=== PATIENT | female | born 1970 | race American Indian/Alaskan Native ===

== ENCOUNTER 2017-07-25 00:23 | Inpatient (IN) | payer MEDICAID ==
[2017-07-25 00:24] VITALS: BMI 23.5
[2017-07-25 00:44] VITALS: O2SAT 98
--- NOTE | 2017-07-25 01:15 | ED PDOC ---
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 Patient reports that her mother 07/08 and she has had increased melancholia since. She also reports she was 3 years clean of heroin, but snorted heroin 3 days ago. Patient is reporting suicidal thoughts including possibly overdosing on pills. PMD: Dr. Thornton Past Medical History Reviewed: Historical Data, Nursing Documentation, Vital Signs Vital Signs: Last Vital Signs Temp 98.8 F 07/25/17 00:39 Pulse 82 07/25/17 00:39 Resp 16 07/25/17 00:39 BP 114/78 07/25/17 00:39 Pulse Ox 98 07/25/17 00:39 - Medical History PMH: Anemia, Anxiety, Asthma, Bipolar Disorder, Depression Denies: Alzheimer's Disease, Arthritis, Atrial Fibrillation, Bronchitis, Cardia Arrhythmia, CHF, COPD, Crohn's Disease, Diabetes, Diverticulitis, Emphysema, Fractures, Gastritis, Gall Bladder Disease, Hepatitis, HIV, HTN, Hypercholesterolemia, Hyperthyroidism, Hypothyroidism, Kidney Stones, Migraine, Mitral Valve Prolapse, Multiple Sclerosis, Osteoporosis, Pancreatitis, Parkinson 's Disease, Personality Disorder, Pneumonia, Pulmonary Embolism, Chronic Kidney Disease, Rheumatoid Arthritis, Schizophrenia, Seizures, Sickle Cell Disease, Sexually Transmitted Disease, Sleep Apnea, TIA - Surgical History Surgical History: Cholecystectomy Denies: Appendectomy, CABG, Carotid Endarterectomy, Coronary Stent, Pacemaker , Tonsillectomy - Family History Family History: States: Unknown Family Hx - Social History Current smoker - smoking cessation education provided: Yes (5 cigarettes per day ) Alcohol: < 2 Drinks/Day Drugs: Opiates (heroin) - Immunization History Hx Tetanus Toxoid Vaccination: No Hx Influenza Vaccination: Yes Hx Pneumococcal Vaccination: No - Home Medications Home Medications: Ambulatory Orders Medication Instructions Recorded Docusate [Colace] 100 mg PO BID #14 cap 04/20/17 Gabapentin [Neurontin] 600 mg PO TID #45 tab 04/20/17 QUEtiapine [Seroquel] 300 mg PO AMHS #30 tab 04/20/17 traZODone [Desyrel] 200 mg PO HS #30 tab 04/20/17 ARIPiprazole [Abilify] 10 mg PO QPM #30 tab 06/01/17 FLUoxetine [Prozac] 20 mg PO DAILY #30 cap 06/01/17 Gabapentin [Neurontin] 300 mg PO TID #90 cap 06/01/17 QUEtiapine [Seroquel] 100 mg PO HS #30 tab 06/01/17 traZODone [Desyrel] 100 mg PO HS PRN #30 tab 06/01/17 - Allergies Allergies/Adverse Reactions: Allergies Allergy/AdvReac Type Severity Reaction Status Date / Time Penicillins AdvReac RASH Verified 07/25/17 00:39 Review of Systems ROS Statement: Except As Marked, All Systems Reviewed And Found Negative Psych: Positive for: Depression, Suicidal ideation Physical Exam - Reviewed Nursing Documentation Reviewed: Yes Vital Signs Reviewed: Yes - Physical Exam Appears: Positive for: Non-toxic, No Acute Distress (poor state of hygiene) Head Exam: Positive for: ATRAUMATIC, NORMAL INSPECTION, NORMOCEPHALIC Skin: Positive for: Normal Color, Warm, Dry. Negative for: Rash Eye Exam: Positive for: EOMI, Normal appearance, PERRL Neck: Positive for: Normal, Painless ROM, Supple Cardiovascular/Chest: Positive for: Regular Rate, Rhythm. Negative for: Murmur Respiratory: Positive for: Normal Breath Sounds. Negative for: Respiratory Distress Gastrointestinal/Abdominal: Positive for: Normal Exam, Soft. Negative for: Tenderness Back: Positive for: Normal Inspection. Negative for: L CVA Tenderness, R CVA Tenderness, Vertebral Tenderness Extremity: Positive for: Normal ROM. Negative for: Pedal Edema, Deformity Neurologic/Psych: Positive for: Alert, Oriented, Mood/Affect (depressed). Negative for: Motor/Sensory Deficits - Laboratory Results Result Diagrams: 07/25/17 01:50 - ECG O2 Sat by Pulse Oximetry: 98 (RA) Pulse Ox Interpretation: Normal Medical Decision Making Medical Decision Makin:50 Initial Impression: 47 y/o female with melancholia and suicidal ideations in setting of known depression Plan: --EKG --CMP --Alcohol serum --Drug screen --Crisis evaluation --Urine --CBC --Accucheck --Urinalysis --Reevaluation 02:33 Patient evaluated by crisis and will be admitted for further psychiatric stabilization and treatment. Patient is medically stable for psychiatric admission. Scribe Attestation: Documented by Eladio Pineda, acting as a scribe for Sorin Suh MD. Provider Scribe Attestation: All medical record entries made by the Scribe were at my direction and personally dictated by me. I have reviewed the chart and agree that the record accurately reflects my personal performance of the history, physical exam, medical decision making, and the department course for this patient. I have also personally directed, reviewed, and agree with the discharge instructions and disposition. Disposition - Clinical Impression Clinical Impression: Schizoaffective disorder - Patient ED Disposition Is Patient to be Admitted: Yes - Disposition Referrals: Abigail Thornton MD [Primary Care Provider] - Disposition Time: 02:33 Condition: FAIR Forms: [employer] (Bengali) - Pt Status Changed To: Hospital Disposition Of: Inpatient - Admit Certification Admit to Inpatient:: After my assessment, the patient will require hospitalization for at least two midnights. This is because of the severity of symptoms shown, intensity of services needed, and/or the medical risk in this patient being treated as an outpatient.
[2017-07-25 01:31] LABS: SQUAMOUS EPITHIAL 2 /hpf (0-5); URINE BACTERIA OCC (<OCC); URINE BILIRUBIN SMALL (NEGATIVE); URINE BLOOD NEGATIVE (NEGATIVE); URINE CLARITY SLIGHTY-CLOUDY (Clear); URINE COLOR AMBER (YELLOW); URINE GLUCOSE (UA) NEG (Normal); URINE LEUKOCYTE ESTERASE NEG Leu/uL (Negative); URINE PROTEIN 30 mg/dL (NEGATIVE)
[2017-07-25 01:46] LABS: BARBITURATES, UR NEGATIVE (NEGATIVE); BENZODIAZEPINES, UR POSITIVE (NEGATIVE); OPIATES, UR POSITIVE (NEGATIVE); PHENCYCLIDINE, UR NEGATIVE (NEGATIVE)
[2017-07-25 02:16] LABS: BASO % 0.3 % (0.0-2.0); EOS # 0.3 K/uL (0.0-0.7); EOS % 4.3 % (0.0-4.0); HEMOGLOBIN 12.8 g/dL (12.0-16.0); LYMPH # 2.5 K/uL (1.0-4.3); LYMPH % 33.7 % (20.0-40.0); MEAN CORPUSCULAR HEMOGLOBIN 30.8 pg (27.0-31.0); MEAN CORPUSCULAR HGB CONC 33.8 g/dL (33.0-37.0); MEAN PLATELET VOLUME 9.7 fl (7.2-11.7); MONO # 0.8 K/uL (0.0-0.8); NEUT # 3.8 K/uL (1.8-7.0); NEUT % 50.7 % (50.0-75.0); NRBC % 0.2 % (0.0-0.0); RBC 4.16 Mil/uL (3.80-5.20); RED CELL DISTRIBUTION WIDTH 15.7 % (11.5-14.5); WHITE BLOOD COUNT 7.6 K/uL (4.8-10.8)
[2017-07-25 03:52] LABS: ALBUMIN 3.6 g/dL (3.5-5.0); ALT/SGPT 77 U/L (9-52); AST/SGOT 122 U/L (14-36); BLOOD UREA NITROGEN 11 mg/dl (7-17); GFR AFRICAN-AMERICAN > 60; GFR NON-AFRICAN AMERICAN > 60
[2017-07-25] MEDS ORDERED: Magnesium Hydroxide Susp 30 ml UD PO PRN (04:10)
[2017-07-25] MEDS ORDERED: Alum-Mag Hydrox-Simethicone Susp (30 mL) PO PRN (04:10)
[2017-07-25] MEDS ORDERED: DiphenhydrAMINE 50 mg/ml Inj IM PRN (04:10)
--- NOTE | 2017-07-25 04:27 | PCM.BM ---
<Ashu Olivia - Last Filed: 07/25/17 04:26> Treatment Plan Problems - Problems identified on initial assessmt Hopelessness/Helplessness Date Initiated: 07/25/17 Time Initiated: 04:26 Assessment reference: NA Status: Active Priority: 1 Feelings of Worthlessness Date Initiated: 07/25/17 Time Initiated: 04:26 Assessment reference: NA Status: Active Priority: 2 Treatment assets and liabiliti Patient Assests: adapts well (Chronic, Anemia), cooperative, self-reliant, ADL independent, negotiates basic needs, cognitively intact, good interpersonal skills Patient Liabilities: relationship conflicts, substance abuse, medical problems - Milieu Protocol Maintain good personal hygiene: every shift Encourage regular showers, every shift Remind patient to perform daily oral care, every shift Assist patient to perform ADL's Maintain personal safety: daily Educate patient to report safety concerns to staff, daily Monitor environment for contraband/sharps Medication safety: Monitor for expected outcome, potential side effects: daily, Assess barriers to learning: daily, Assess readiness for medication education: daily <Jovita Chadwick - Last Filed: 07/25/17 08:47> - Diagnosis (1) Schizoaffective disorder Status: Chronic Interventions: Medication management, Individual and group therapy, Psychoeducation 07/25/17 08:47 (2) Benzodiazepine abuse Status: Acute Interventions: Medication management, Individual and group therapy, Psychoeducation 07/25/17 08:48 (3) Cocaine use disorder, moderate, dependence Status: Acute Interventions: Medication management, Individual and group therapy, Psychoeducation 07/25/17 08:48 (4) Opioid use disorder, severe, dependence Status: Acute Interventions: Medication management, Individual and group therapy, Psychoeducation 07/25/17 08:48 <Yuriy Bazzi - Last Filed: 07/27/17 07:08> Family Contact Family involvement: Famliy/SO not involved Family contact: Patient declines to allow family contact at present Family contact name: Pt denied. - Goals for Treatment Patient goals for treatment: Pt did not offer any concrete goals for treatment at this time. Discharge/Continuing Care - Education Needs Education Needs: Patient Medication, Patient Diagnosis/Disease Process, Patient Coping Skills, Patient Anger Management skills, Patient Community resources, Patient Personal Hygiene/Grooming - Discharge Discharge Criteria: Tolerates medication w/o severe side effects, Free of Suicidal thoughts, Free of agitation, Normal sleep pattern, Ability to care for self, No longer exhibiting s/s of withdrawal, Reduction of target symptoms Discharge to:: [facility] - Treatment Team Participation Patient/Family/SO Statement: 07/27/17 07:06 Pt appeared lethargic and irritable during treatment team. Pt reported that she just woke up and was still tired. When pt was asked how she was today her response was "same old, same old." Medications were reviewed with pt of Seroquel and Trazodone. Pt currently denied side-effects and denied withdrawal symptoms such as tremors, diarrhea, nausea or upset stomach. Pt appeared anxious for team to end so she could return to bed. Discussed with Family/SO: No Was Patient/Family/SO present at Treatment Team Meeting: Yes
--- NOTE | 2017-07-25 08:29 | RAD ---
HISTORY: admit COMPARISON: No prior. FINDINGS: LUNGS: The lungs are well inflated and clear. PLEURA: No significant pleural effusion identified, no pneumothorax apparent. CARDIOVASCULAR: Normal. OSSEOUS STRUCTURES: No significant abnormalities. VISUALIZED UPPER ABDOMEN: Normal. OTHER FINDINGS: None. IMPRESSION: No active pulmonary disease.
--- NOTE | 2017-07-25 08:37 | CARD ---
APPROVED REPORT EKG Measurement Heart [id number] <Conclusion> Normal sinus rhythm Normal ECG
--- NOTE | 2017-07-25 08:55 | PCM.PSYCH ---
Initial Psychiatric Evaluation - Initial Psychiatric Evaluation Type of Admission: Voluntary Legal Status: Capacity Chief Complaint (in patient's own words): "I'm depressed." Patient's Reaction to Hospitalization: 47 yo female w/ h/o schizoaffective disorder vs bipolar disorder, cocaine/opioid /benzodiazepine/cannabis use disorders, presents w/ depression and suicidal ideation w/o specific plan in the context of recent relapse on heroin, methadone , xanax, marijuana and cocaine. She reports she feels depressed due to recent deaths in her life and stress. She also reports intermittent auditory hallucinations of her grandmother screaming, last heard last night. +Sleep/ appetite disturbances. +Feelings of hopelessness. She reports that she is not always compliant with her medications (Seroquel and Trazodone). PPHx: H/o multiple past psychiatric hospitalizations for schizoaffective d/o vs bipolar disorder vs substance induced mood disorder. [place] [facility] but could not recall the doctors name. PMHx: Constipation PSurgHx: Cholecystectomy SHx: +Cocaine/heroin/methadone/xanax/cocaine/marijuana abuse; smokes 5-6 cig / day (declined nicotine replacement); denies ETOH; lives "with a friend"; unemployed ALL: PCN Current Medications: Active Medications Generic Name Dose Route Start Last Admin Trade Name William PRN Reason Stop Dose Admin Acetaminophen 650 mg 07/25/17 04:10 Tylenol 325mg Tab PO Q4 PRN Pain, moderate (4-7) Al Hydrox/Mg Hydrox/Simethicone 30 ml 07/25/17 04:10 Maalox Plus 30 Ml PO Q4 PRN Dyspepsia Diphenhydramine HCl 50 mg 07/25/17 04:10 Benadryl IM Q6 PRN Extrapyramidal S/S Unable PO Diphenhydramine HCl 50 mg 07/25/17 04:10 Benadryl PO Q6 PRN Extrapyramidal Symptoms Diphenhydramine HCl 50 mg 07/25/17 04:19 Benadryl PO HS PRN Sleep Docusate Sodium 100 mg 07/25/17 09:00 Colace PO BID ANISA Haloperidol 5 mg 07/25/17 04:10 Haldol PO Q4 PRN Agitation Haloperidol Lactate 5 mg 07/25/17 04:10 Haldol IM Q4 PRN Agitation, Unable to Take PO Ibuprofen 800 mg 07/25/17 04:17 Motrin Tab PO 07/28/17 04:18 Q6 PRN Pain, severe (8-10) Loperamide HCl 2 mg 07/25/17 04:17 Imodium PO Q4 PRN After Loose Bowel Movement Lorazepam 2 mg 07/25/17 04:10 Ativan IM Q4 PRN Anxiety/Agitation,Unable PO Lorazepam 2 mg 07/25/17 04:10 Ativan PO Q4 PRN Anxiety/Agitation Lorazepam 0.5 mg 07/25/17 09:00 Ativan PO TID ANISA Magnesium Hydroxide 30 ml 07/25/17 04:10 Milk Of Magnesia PO HS PRN Constipation Pneumococcal Polyvalent Vaccine 0.5 ml 07/25/17 10:00 Pneumovax 23 Vaccine IM 07/25/17 10:01 .ONCE ONE Quetiapine Fumarate 300 mg 07/25/17 22:00 Seroquel PO HS ANISA Quetiapine Fumarate 100 mg 07/25/17 09:00 Seroquel PO DAILY ANISA Trazodone HCl 100 mg 07/25/17 22:00 Desyrel PO HS ANISA Past Psychiatric History - Past Psychiatric History Previous Treatment History: Inpatient Pertinent Medical Hx (Current Medical&Sleep Prob, Allergies): Allergies Allergy/AdvReac Type Severity Reaction Status Date / Time Penicillins AdvReac RASH Verified 07/25/17 00:39 Docusate [Colace] 100 mg PO BID #14 cap 04/20/17 Gabapentin [Neurontin] 600 mg PO TID #45 tab 04/20/17 QUEtiapine [Seroquel] 300 mg PO AMHS #30 tab 04/20/17 traZODone [Desyrel] 200 mg PO HS #30 tab 04/20/17 ARIPiprazole [Abilify] 10 mg PO QPM #30 tab 06/01/17 FLUoxetine [Prozac] 20 mg PO DAILY #30 cap 06/01/17 Gabapentin [Neurontin] 300 mg PO TID #90 cap 06/01/17 QUEtiapine [Seroquel] 100 mg PO HS #30 tab 06/01/17 traZODone [Desyrel] 100 mg PO HS PRN #30 tab 06/01/17 Review of Systems - Psychiatric Psychiatric: As Per HPI, Abnormal Sleep Pattern, Anxiety, Auditory Hallucinations, Behavioral Changes, Depression, Difficulty Concentrating, Hopelessness, Irritability, Mood Swings, Suicidal Ideation Mental Status Examination - Personal Presentation Personal Presentation: Looks older than stated age - Affect Affect: Constricted, Depressed - Motor Activity Motor Activity: Calm - Reliability in Providing Information Reliability in Providing Information: Fair - Speech Speech: Organized, Coherent - Mood Mood: Depressed - Formal Thought Process Formal Thought Process: Hallucinations (Last heard AH last night) - Hallucinations/Delusions Hallucinations: Auditory - Obsessions/Compulsions Obsessions: No Compulsions: No - Cognitive Functions Orientation: Person, Place, Situation, Time Sensorium: Alert Attention/Concentration: Attentive Estimate of Intelligence: Average Judgement: Intact, as evidence by: Insight regarding need for hospitalization Memory: Recent intact, as evidence by: Ability to recall events of the day, Remote intact, as evidenced by: Abilit to recall sig. life events, Remote intact , as evidenced by: Ability to recall historical events - Risk Risk: Suicidal, Diminished functioning - Strength & Assets Inventory Strength & Assets Inventory: Cooperative - Limitations Limitations: Other (Poverty, Homelessness) DSM 5 DX - DSM 5 DSM 5 Diagnosis: Schizoaffective Disorder; Opioid/Cocaine/Cannabis/Benzodiazepine Use Disorders - Recommended/Plan of Treatment Treatment Recommendations and Plan of Treatment: Schizoaffective Disorder (r/o substance induced mood disorder); Opioid/Cocaine/ Cannabis/Benzodiazepine Use Disorders -Admit to psychiatry unit -Individual and group therapy -Restart Seroquel and Trazodone -Psychoeducation re: dangers of substance abuse -Ativan to prevent withdrawal, will taper daily -Patient declined nicotine replacement -Medicine consult -Disposition planning Projected ELOS: 5-8 days Discharge Plan and Discharge Criteria: Discharge when patient is psychiatrically stable - Smoking Cessation Smoking Cessation Initiated: No Reason for not providing: Patient declined
[2017-07-25] MEDS ORDERED: Pneumococcal 23-Valent Vaccine IM ONE (10:00)
[2017-07-26 07:47] LABS: T4 4.22 ug/dl (5.5-11.0)
--- NOTE | 2017-07-26 11:26 | PCM.PYCHPN ---
Psychiatric Progress Note - Psychiatric Progress Note Patient seen today, length of contact: Patient evaluated, case discussed w/ team , chart reviewed Patient Chief Complaint: "I'm depressed." Problems Identified/Issues Discussed: Patient continues to report feeling depressed. She is labile, irritable and disinterested in engaging in interview. She denies acute tremors or other signs of acute benzo withdrawal. We discussed continued tapering of Ativan. She denies adverse effects to medications at this time. She reports that she last heard AH of her grandmother yesterday, but denies current AH/VH/SI/HI. Medication Change: Yes (Taper Ativan) Medical Record Reviewed: Yes Consults ordered or reviewed: Medicine consult Mental Status Examination - Cognitive Function Orientation: Person, Place, Situation, Time Memory: Intact Attention: WNL Concentration: WNL Association: WNL Fund of Knowledge: [facility] Decription of patient's judgement and insights: Poor I/J - Mood Mood: Depressed - Affect Affect: Constricted, Depressed - Formal Thought Process Formal Thought Process: No Impairment Psychotic Thoughts and Behaviors: Denies current AH/VH; +AH yesterday - Suicidal Ideation Suicidal Ideation: No - Homicidal Ideation Homicidal Ideation: No Goal/Treatment Plan - Goal/Treatment Plan Need for Continued Stay: Remain at risks for inpatient hospitalization, Severe depression anxiety, Discharge may exacerbated symptoms Progress Toward Problem(s) and Goals/Treatment Plan: Schizoaffective Disorder (r/o substance induced mood disorder); Opioid/Cocaine/ Cannabis/Benzodiazepine Use Disorders -Individual and group therapy -Continue Seroquel 100 mg PO Daily/ 300 mg PO HS and Trazodone 100 mg PO HS -Psychoeducation re: dangers of substance abuse -Ativan to prevent withdrawal, will taper daily -Patient declined nicotine replacement -Medicine consult -Disposition planning Estimated Date of D/C: 07/31/17
--- NOTE | 2017-07-27 09:32 | PCM.PYCHPN ---
Psychiatric Progress Note - Psychiatric Progress Note Patient seen today, length of contact: Patient evaluated, case discussed w/ team , chart reviewed Patient Chief Complaint: "I'm depressed." Problems Identified/Issues Discussed: Patient continue to report feeling depressed. She denies current AH, but reports that she last heard AH last night. No signs/symptoms of benzo withdrawal; Ativan will be stopped. She denies adverse effects to medications at this time. She denies current AH/VH/SI/HI. Medication Change: Yes (Stop Ativan) Medical Record Reviewed: Yes Consults ordered or reviewed: Medicine consult Mental Status Examination - Cognitive Function Orientation: Person, Place, Situation, Time Memory: Intact Attention: WNL Concentration: WNL Association: WNL Fund of Knowledge: [facility] Decription of patient's judgement and insights: Fair I/J - Mood Mood: Depressed - Affect Affect: Constricted, Depressed - Formal Thought Process Formal Thought Process: No Impairment Psychotic Thoughts and Behaviors: Denies current AH/VH; +AH yesterday - Suicidal Ideation Suicidal Ideation: No - Homicidal Ideation Homicidal Ideation: No Goal/Treatment Plan - Goal/Treatment Plan Need for Continued Stay: Remain at risks for inpatient hospitalization, Severe depression anxiety, Discharge may exacerbated symptoms Progress Toward Problem(s) and Goals/Treatment Plan: Schizoaffective Disorder (r/o substance induced mood disorder); Opioid/Cocaine/ Cannabis/Benzodiazepine Use Disorders -Individual and group therapy -Continue Seroquel 100 mg PO Daily/ 300 mg PO HS and Trazodone 100 mg PO HS -Psychoeducation re: dangers of substance abuse -Stop Ativan -Patient declined nicotine replacement -Medicine consult -Disposition planning Estimated Date of D/C: 07/31/17
--- NOTE | 2017-07-27 14:27 | CON ---
DATE: 07/27/2017 INITIAL CONSULTATION HISTORY OF PRESENT ILLNESS: This is a 47-year-old -[place] female with long-standing psychiatric history. The patient was admitted to psychiatric floor and medical consultation was called for medical followup. The patient admits that she has headache, which is mostly frontal headache, not associated with any nausea or vomiting. The patient states that she used to get these headaches and she takes Advil. The patient denied to have any cardiopulmonary or neurological or GI symptoms. REVIEW OF SYSTEMS: Other review of systems is negative. ALLERGIES: POSITIVE ALLERGY TO PENICILLIN. MEDICATIONS: As per MAR. PAST MEDICAL HISTORY: Status post cholecystectomy. SOCIAL HISTORY: Positive for smoking and heroin abuse. Denied any alcohol abuse. FAMILY HISTORY: Not contributory. PHYSICAL EXAMINATION: GENERAL: The patient is in bed, not in any cardiopulmonary distress. VITAL SIGNS: Blood pressure 96/53, temperature 98.1, respiratory rate 20, and pulse 59. HEENT: Pupils equal and reactive to light. Normal-appearing mucosa of the conjunctivae, oropharyngeal and nasal membrane mucosa. NECK: Supple. No JVD. No carotid bruits. No lymph nodes. No thyromegaly. CHEST AND LUNGS: Bilateral symmetrical expansion. Good air exchange. No rales. No rhonchi. CARDIOVASCULAR: PMI not localized. S1 and S2. No additional sounds. ABDOMEN: Normoactive bowel sounds. No tenderness. No organomegaly. No masses. EXTREMITIES: No cyanosis. No clubbing. No edema. CENTRAL NERVOUS SYSTEM: Alert, awake, and oriented x2. No neurological deficits could be appreciated. LABORATORY DATA: Blood work done showed elevated liver enzymes with AST of 122 and ALT of 77 as well as urine drug screen is positive for opiates and methadone, cocaine and cannabinoids. ASSESSMENT: 1. Multi-substance abuse; heroin, opiates, and cannabinoids. 2. Elevated liver enzymes. 3. Possible migraine headache. PLAN: 1. We will order for the patient Motrin, Pepcid for headache and monitor closely. 2. We will do hepatitis profile and abdominal ultrasound for elevated liver enzymes. 3. We will observe closely for any signs of drug withdrawal. Stephanie Garcia MD [facility] # [id number]
[2017-07-27 16:36] LABS: HEPATITIS B SURFACE AG Negative (NEGATIVE)
[2017-07-27 16:40] LABS: HEPATITIS B CORE AB NEGATIVE (NEGATIVE)
[2017-07-27 16:52] LABS: HEPATITIS C ANTIBODY NEGATIVE (NEGATIVE)
--- NOTE | 2017-07-28 08:32 | PCM.PYCHPN ---
Psychiatric Progress Note - Psychiatric Progress Note Patient seen today, length of contact: Patient evaluated, case discussed w/ team , chart reviewed Patient Chief Complaint: "I'm depressed." Problems Identified/Issues Discussed: Patient continue to report feeling depressed and is irritable at times. She denies AH/VH/SI/HI. No signs/symptoms of benzo withdrawal. She denies adverse effects to medications at this time. Patient reports she is interested in substance abuse rehabilitation. Psychoeducation provided on the dangers of substance abuse. Medication Change: No Medical Record Reviewed: Yes Consults ordered or reviewed: Medicine consult Mental Status Examination - Cognitive Function Orientation: Person, Place, Situation, Time Memory: Intact Attention: WNL Concentration: WNL Association: WNL Fund of Knowledge: [facility] Decription of patient's judgement and insights: Fair I/J - Mood Mood: Depressed - Affect Affect: Constricted, Depressed - Formal Thought Process Formal Thought Process: No Impairment Psychotic Thoughts and Behaviors: Denies current AH/VH - Suicidal Ideation Suicidal Ideation: No - Homicidal Ideation Homicidal Ideation: No Goal/Treatment Plan - Goal/Treatment Plan Need for Continued Stay: Remain at risks for inpatient hospitalization, Severe depression anxiety, Discharge may exacerbated symptoms Progress Toward Problem(s) and Goals/Treatment Plan: Schizoaffective Disorder (r/o substance induced mood disorder); Opioid/Cocaine/ Cannabis/Benzodiazepine Use Disorders -Individual and group therapy -Continue Seroquel 100 mg PO Daily/ 300 mg PO HS and Trazodone 100 mg PO HS -Psychoeducation re: dangers of substance abuse -Patient declined nicotine replacement -Medicine consult -Disposition planning Estimated Date of D/C: 08/02/17
--- NOTE | 2017-07-29 01:19 | PN ---
DAILY PROGRESS NOTE DATE: 07/28/2017 SUBJECTIVE: The patient is seen today 07/28/2017. She is not in any cardiopulmonary distress and headache is better controlled. PHYSICAL EXAMINATION: VITAL SIGNS: Blood pressure is 90/51, temperature 97.6, respiratory rate 18, and pulse 67. HEENT: Pupils are equal and reactive to light. Normal-appearing mucosa of the conjunctivae, oropharynx, and nasal membrane mucosa. NECK: Supple. No JVD. No carotid bruit. No lymph node. No thyromegaly. CHEST AND LUNGS: Bilateral symmetrical expansion. Good air exchange. No rales. No rhonchi. CARDIOVASCULAR: PMI not localized. S1 and S2. No additional sounds. ABDOMEN: Normoactive bowel sounds. No tenderness. No organomegaly. No masses. EXTREMITIES: No cyanosis. No clubbing. No edema. CENTRAL NERVOUS SYSTEM: Alert, awake, and oriented x2. No neurological deficit could be appreciated. ASSESSMENT AND PLAN: 1. Substance abuse. 2. Status post cholecystectomy. 3. Elevated liver enzymes. We will follow hepatitis profile that is ordered. 4. Migraine headache. We will give nonsteroidal anti-inflammatory as needed. We will follow up the patient with you. Stephanie Garcia MD
--- NOTE | 2017-07-29 10:15 | PCM.PYCHPN ---
Psychiatric Progress Note - Psychiatric Progress Note Patient seen today, length of contact: Patient evaluated, case discussed w/ team , chart reviewed Patient Chief Complaint: pt remains anxious and cant sleep at night.pt still gets very easily irritible arguing with peers pt also c/o blood in the stools. Medication Change: No Medical Record Reviewed: Yes Mental Status Examination - Cognitive Function Orientation: Person, Place, Situation, Time Memory: Intact Attention: WNL Concentration: WNL Association: WNL Fund of Knowledge: WNL - Mood Mood: Depressed - Affect Affect: Constricted, Depressed - Formal Thought Process Formal Thought Process: No Impairment - Suicidal Ideation Suicidal Ideation: No - Homicidal Ideation Homicidal Ideation: No Goal/Treatment Plan - Goal/Treatment Plan Need for Continued Stay: Remain at risks for inpatient hospitalization, Severe depression anxiety, Discharge may exacerbated symptoms Progress Toward Problem(s) and Goals/Treatment Plan: will increase trazodone to 125 mg hs for insomniaand engage pt in therapy and groups. will have hospitalist see pt for c/o blood in stool. Estimated Date of D/C: 08/02/17
--- NOTE | 2017-07-29 20:58 | PN ---
DAILY PROGRESS NOTE DATE: 07/29/2017 SUBJECTIVE: The patient complains of bloody stool that was noticed today. There is no pain. PHYSICAL EXAMINATION: VITAL SIGNS: Blood pressure 97/63, temperature 98.1, respiratory rate 18, and pulse 73. HEENT: Pupils are equal and reactive to light. Normal-appearing mucosa of the conjunctivae, oropharynx, and nasal membrane mucosa. NECK: Supple. No JVD. No carotid bruit. CHEST AND LUNGS: Bilateral symmetrical expansion. Good air exchange. No rales. No rhonchi. CARDIOVASCULAR: PMI not localized. S1 and S2. No additional sounds. ABDOMEN: Normoactive bowel sounds. No tenderness. No organomegaly. No masses. EXTREMITIES: No cyanosis. No clubbing. No edema. CENTRAL NERVOUS SYSTEM: Alert, awake, and oriented x2. No neurological deficit could be appreciated. ASSESSMENT: 1. Rectal bleeding. 2. Multi-substance abuse. 3. Migraine headache. PLAN: We will check stool for occult blood and start the patient on proton pump inhibitor and call for GI consult. Stephanie Garcia MD
[2017-07-30] MEDS: Pantoprazole 40 mg EC Tab PO SCH (08:50)
[2017-07-30 09:42] LABS: BASO # 0.1 K/uL (0.0-0.2); BASO % 0.7 % (0.0-2.0); EOS # 0.3 K/uL (0.0-0.7); HEMOGLOBIN 14.4 g/dL (12.0-16.0); LYMPH # 2.2 K/uL (1.0-4.3); LYMPH % 32.1 % (20.0-40.0); MEAN CELL VOLUME 91.7 fl (81.0-99.0); MEAN CORPUSCULAR HEMOGLOBIN 30.4 pg (27.0-31.0); MEAN CORPUSCULAR HGB CONC 33.2 g/dL (33.0-37.0); MEAN PLATELET VOLUME 9.3 fl (7.2-11.7); MONO # 0.5 K/uL (0.0-0.8); MONO % 6.8 % (0.0-10.0); NEUT # 3.8 K/uL (1.8-7.0); NEUT % 56.4 % (50.0-75.0); NRBC % 0.1 % (0.0-0.0); RBC 4.74 Mil/uL (3.80-5.20); RED CELL DISTRIBUTION WIDTH 16.4 % (11.5-14.5); WHITE BLOOD COUNT 6.8 K/uL (4.8-10.8)
[2017-07-30 10:00] LABS: ALB/GLOB RATIO 1.1 (1.0-2.1); ALBUMIN 4.3 g/dL (3.5-5.0); ALT/SGPT 41 U/L (9-52); AST/SGOT 30 U/L (14-36); BLOOD UREA NITROGEN 17 mg/dl (7-17); CALCIUM 9.3 mg/dL (8.4-10.2); GFR AFRICAN-AMERICAN > 60; GFR NON-AFRICAN AMERICAN > 60
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
--- NOTE | 2017-07-30 15:06 | PCM.PYCHPN ---
Psychiatric Progress Note - Psychiatric Progress Note Patient seen today, length of contact: Patient evaluated, case discussed w/ team , chart reviewed Patient Chief Complaint: pt has been less anxious and less nervous and less irritible and slept better last night. pt was seen by GI for c/o blood in stools and outpt follow up with GI recommended. Medication Change: No Medical Record Reviewed: Yes Mental Status Examination - Cognitive Function Orientation: Person, Place, Situation, Time Memory: Intact Attention: WNL Concentration: WNL Association: WNL Fund of Knowledge: WNL - Mood Mood: Depressed - Affect Affect: Constricted, Depressed - Formal Thought Process Formal Thought Process: No Impairment - Suicidal Ideation Suicidal Ideation: No - Homicidal Ideation Homicidal Ideation: No Goal/Treatment Plan - Goal/Treatment Plan Need for Continued Stay: Remain at risks for inpatient hospitalization, Severe depression anxiety, Discharge may exacerbated symptoms Progress Toward Problem(s) and Goals/Treatment Plan: will increase trazodone to 125 mg hs for insomniaand engage pt in therapy and groups. will have hospitalist see pt for c/o blood in stool. Estimated Date of D/C: 08/02/17
[2017-07-30 16:25] VITALS: PULSE 68
--- NOTE | 2017-07-30 23:04 | PN ---
DAILY PROGRESS NOTE DATE: 07/30/2017 SUBJECTIVE: The patient is seen today 07/30/2017. She was complaining of sore throat, but no fever, no chills. The patient denied to have any further rectal bleeding today. The patient was seen by Gastroenterology and due to the stable hemoglobin, the patient was requested to follow up as an outpatient for endoscopy. OBJECTIVE: VITAL SIGNS: Blood pressure is 114/64, temperature 98.1, respiratory rate 19, and pulse 68. HEENT: Pupils equal and reactive to light. Normal appearing mucosa of the conjunctivae, oropharynx, and nasal membrane mucosa. NECK: Supple. No JVD. No carotid bruit. No lymph node. No thyromegaly. CHEST AND LUNGS: Bilateral symmetrical expansion. Good air exchange. No rales. No rhonchi. CARDIOVASCULAR: PMI not localized. S1 and S2. No additional sounds. ABDOMEN: Normoactive bowel sounds. No tenderness. No organomegaly. No masses. EXTREMITIES: No cyanosis. No clubbing. No edema. CENTRAL NERVOUS SYSTEM: Alert, awake, and oriented x2. No neurological deficit could be appreciated. ASSESSMENT: 1. Multidrug abuse. 2. Pharyngitis likely viral. 3. Status post rectal bleeding. PLAN: We will order for the patient Cepacol as well as Tylenol for possible viral pharyngitis and we will advise the patient should follow with Gastroenterology as an outpatient. Stephanie Garcia MD
[2017-07-31 05:42] VITALS: BP 99/60; RESP 18; TEMP 97.6
[2017-07-31] MEDS: Pantoprazole 40 mg EC Tab PO SCH (09:04)
--- NOTE | 2017-07-31 10:00 | PCM.PYCHDC ---
Mental Status Examination - Mental Status Examination Orientation: Person, Place, Situation, Time Memory: Intact Mood: Neutral Affect: Broad Speech: Appropriate Attention: WNL Concentration: WNL Association: WNL Fund of Knowledge: WNL Formal Thought Process: No Impairment Description of patient's judgement and insight: Fair I/J Psychotic Thoughts and Behaviors: Denies current AH/VH Suicidal Ideation: No Current Homicidal Ideation?: No Discharge Summary - Discharge Note Reason for Hospitalization: 47 yo female w/ h/o schizoaffective disorder vs bipolar disorder, cocaine/opioid /benzodiazepine/cannabis use disorders, presents w/ depression and suicidal ideation w/o specific plan in the context of recent relapse on heroin, methadone , xanax, marijuana and cocaine. She reports she feels depressed due to recent deaths in her life and stress. She also reports intermittent auditory hallucinations of her grandmother screaming, last heard last night. +Sleep/ appetite disturbances. +Feelings of hopelessness. She reports that she is not always compliant with her medications (Seroquel and Trazodone). PPHx: H/o multiple past psychiatric hospitalizations for schizoaffective d/o vs bipolar disorder vs substance induced mood disorder. Reports outpatient treatment through [facility], but could not recall the doctors name. PMHx: Constipation PSurgHx: Cholecystectomy SHx: +Cocaine/heroin/methadone/xanax/cocaine/marijuana abuse; smokes 5-6 cig / day (declined nicotine replacement); denies ETOH; lives "with a friend"; unemployed ALL: PCN Laboratory Data: Abnormal Lab Results 07/30/17 07/30/17 07:55 17:47 Sodium 140 Potassium 3.9 Chloride 102 Carbon Dioxide 24 Anion Gap 18 BUN 17 Creatinine 0.7 Est GFR ( Amer) > 60 Est GFR (Non-Af Amer) > 60 Random Glucose 109 H Calcium 9.3 Total Bilirubin 0.3 AST 30 ALT 41 Alkaline Phosphatase 104 Total Protein 8.2 Albumin 4.3 Globulin 3.9 Albumin/Globulin Ratio 1.1 Stool Occult Blood Negative Consultations:: List each consultation separately and include: 1. Reason for request. 2. Findings. 3. Follow-up Consultations: Medicine consult Summary of Hospital Course include:: 1. Description of specific treatment plan utilized for patients during their course of treatmen. 2. Summarize the time- course for resolution of acute symptoms and/or regressed behaviors. 3. Describe issues identified and worked on during hospitalization. 4. Describe medication utilized. 5. Describe medical problems identified and treated. 6. Reassessment of suicide risk Summary of Hospital Course: Patient was admitted to the psychiatry unit. Individual and group therapy were provided. Psychoeducation provided on the dangers of substance abuse. Patient was stabilized on Seroquel and Trazodone. No current depression/anxiety/ psychosis. She is psychiatrically stable for discharge at this time. - Diagnosis (1) Schizoaffective disorder Current Visit: Yes Status: Chronic Priority: Medium (2) Benzodiazepine abuse Current Visit: Yes Status: Acute (3) Cocaine use disorder, moderate, dependence Current Visit: No Status: Acute (4) Opioid use disorder, severe, dependence Current Visit: No Status: Acute - Final Diagnosis (DSM 5) Condition upon Discharge: STABLE DSM 5: Schizoaffective Disorder (r/o substance induced mood disorder); Opioid/Cocaine/ Cannabis/Benzodiazepine Use Disorders Disposition: HOME/ ROUTINE Follow-up Treatment Plan: Schizoaffective Disorder (r/o substance induced mood disorder); Opioid/Cocaine/ Cannabis/Benzodiazepine Use Disorders -Individual and group therapy -Continue Seroquel 100 mg PO Daily/ 300 mg PO HS and Trazodone 150 mg PO HS -Psychoeducation re: dangers of substance abuse -Patient declined nicotine replacement -Medicine consult Prescriptions/Medication Reconciliation: Pantoprazole [Protonix EC Tab] 40 mg PO DAILY #30 ect QUEtiapine [Seroquel] 100 mg PO DAILY #30 tab QUEtiapine [SEROquel] 300 mg PO HS #30 tab traZODone [Desyrel] 150 mg PO HS #90 tab - Smoking Cessation Smoking Cessation Medication prescribed: No Reason for not providing: Patient declined - Antipsychotic Medications Pt discharged on 2 or more routine antipsychotic medications: No
== END 2017-07-31 11:15 | disposition home or self-care (01) | DRG 430 ==
LOC: H.ER 00:23 → H.ERHOLD 02:23 → H.STEP 04:08
PROVIDERS: ADMIT Psychiatry & Neurology Psychiatry; ATTEND Psychiatry & Neurology Psychiatry
PROC: GZHZZZZ Group Psychotherapy (ICD-10-PCS; principal; 2017-07-25)
PROC: HZ56ZZZ Individual Psychotherapy for Substance Abuse Treatment, Psychoeducation (ICD-10-PCS; 2017-07-25)
PROC: 3E0234Z Introduction of Serum, Toxoid and Vaccine into Muscle, Percutaneous Approach (ICD-10-PCS; 2017-07-25)
DX: F25.9 Schizoaffective disorder, unspecified (principal); F13.10 Sedative, hypnotic or anxiolytic abuse, uncomplicated; F14.20 Cocaine dependence, uncomplicated; F11.20 Opioid dependence, uncomplicated; K62.5 Hemorrhage of anus and rectum; R45.851 Suicidal ideations; F12.10 Cannabis abuse, uncomplicated; F17.210 Nicotine dependence, cigarettes, uncomplicated; Z88.0 Allergy status to penicillin; Z23 Encounter for immunization; J45.909 Unspecified asthma, uncomplicated; G47.00 Insomnia, unspecified; K59.00 Constipation, unspecified; R74.8 Abnormal levels of other serum enzymes; G43.909 Migraine, unspecified, not intractable, without status migrainosus; J02.9 Acute pharyngitis, unspecified

== ENCOUNTER 2017-08-26 21:47 | Inpatient (IN) | payer MEDICAID ==
[2017-08-26 21:47] VITALS: BMI 25.0
--- NOTE | 2017-08-26 22:08 | ED PDOC ---
HPI: Psych/Substance Abuse Time Seen by Provider: 08/26/17 21:58 Chief Complaint (Nursing): Psychiatric Evaluation Chief Complaint (Provider): Psych Evaluation Additional Complaint(s): Patient is a 47 year old female ED who presents to ED for evaluation of feeling depressed and suicidal x 4 days, with plan to jump from a building or balcony. Patient takes gabapentin, seroquel, and trazodone daily, but did not take her doses today because she knew she was coming to the ED. Patient reports feeling guilty about relapsing and using heroin- last use 2 days ago. She further reports a in her family this past week, patient notes her nephew was shot and killed last week. Patient reports that she sees shadows and hear voices that tell her to kill herself. Patient reports a history of suicide attempts in the past- jumping from a 3rd story balcony and cutting herself. Patient reports no physical complaints at this time. LMP: 05/2017 (perimenopausal) PMD: none provided Past Medical History Reviewed: Historical Data, Nursing Documentation, Vital Signs Vital Signs: Last Vital Signs Temp 98.6 F 08/26/17 21:53 Pulse 65 08/26/17 21:53 Resp 16 08/26/17 21:53 BP 133/77 08/26/17 21:53 Pulse Ox 100 08/26/17 21:53 - Medical History PMH: Anemia, Anxiety, Asthma, Bipolar Disorder, Depression - Surgical History Surgical History: Cholecystectomy - Family History Family History: States: Unknown Family Hx - Social History Current smoker - smoking cessation education provided: Yes (< 10 cigs/day) Alcohol: None Drugs: Opiates - Home Medications Home Medications: Ambulatory Orders Medication Instructions Recorded Clonazepam [Klonopin] 1 tab PO DAILY 08/26/17 QUEtiapine [SEROquel] 100 mg PO DAILY 08/26/17 QUEtiapine [SEROquel] 300 mg PO HS 08/26/17 traZODone [Desyrel] 100 mg PO HS 08/26/17 - Allergies Allergies/Adverse Reactions: Allergies Allergy/AdvReac Type Severity Reaction Status Date / Time Penicillins AdvReac RASH Verified 08/26/17 21:53 Review of Systems ROS Statement: Except As Marked, All Systems Reviewed And Found Negative Psych: Positive for: Depression, Suicidal ideation Physical Exam - Reviewed Nursing Documentation Reviewed: Yes Vital Signs Reviewed: Yes - Physical Exam Appears: Positive for: Well, Non-toxic, No Acute Distress Head Exam: Positive for: NORMOCEPHALIC Skin: Positive for: Normal Color, Warm, Dry Eye Exam: Positive for: EOMI, PERRL ENT: Positive for: Other (Mucus membranes moist. Airway patent (-) stridor.) Neck: Positive for: Painless ROM, Supple Cardiovascular/Chest: Positive for: Regular Rate, Rhythm Respiratory: Positive for: Normal Breath Sounds (respirations even and nonlabored, speaking in full sentences.) Gastrointestinal/Abdominal: Positive for: Soft. Negative for: Tenderness, Distended, Guarding Neurologic/Psych: Positive for: Alert, Oriented (x3), Mood/Affect (flat), Gait ( steady in ED). Negative for: Aphasia, Facial Droop - Laboratory Results Result Diagrams: 08/26/17 23:07 08/26/17 23:07 Urine POC: Negative - ECG O2 Sat by Pulse Oximetry: 100 (RA) Pulse Ox Interpretation: Normal Medical Decision Making Medical Decision Making: Initial impression: psychiatric evaluation, depression with SI Plan: -1:1 observation -Crisis evaluation -Re-evaluation -CBC -CMP -Urine Preg Test -Urine Drug Screen -Urinalysis -Alcohol Serum 2300 Per crisis evaluation, patient to be admitted per Dr Jones with the diagnosis of major depressive disorder. 0000 CMP and CBC reviewed. Slight elevation of LFTs noted but likely incidental as patient has no physical complaints at this time including abdominal pain, urinary symptom, nausea, or vomiting. Pending U/A and Drug screen. Upreg: Negative. 0047 Urinalysis and drug screen reviewed. Arrangements made for admission. Disposition - Clinical Impression Clinical Impression: Major depressive disorder, Suicidal ideation - Patient ED Disposition Is Patient to be Admitted: Yes Counseled Patient/Family Regarding: Diagnosis - Disposition Disposition Time: 00:49 Condition: FAIR - Pt Status Changed To: Hospital Disposition Of: Inpatient - Admit Certification Admit to Inpatient:: After my assessment, the patient will require hospitalization for at least two midnights. This is because of the severity of symptoms shown, intensity of services needed, and/or the medical risk in this patient being treated as an outpatient. - POA Present On Arrival: None Results - Lab Results Lab Results: 08/26/17 08/26/17 08/26/17 23:07 23:07 00:12 WBC 7.8 RBC 4.12 Hgb 12.5 Hct 37.6 MCV 91.2 MCH 30.3 MCHC 33.2 RDW 16.3 H Plt Count 208 MPV 9.3 Neut % (Auto) 52.9 Lymph % (Auto) 31.5 [place] % (Auto) 11.8 H Eos % (Auto) 3.2 Baso % (Auto) 0.6 Neut # (Auto) 4.1 Lymph # (Auto) 2.5 [place] # (Auto) 0.9 H Eos # (Auto) 0.3 Baso # (Auto) 0.0 Sodium 139 Potassium 4.0 Chloride 104 Carbon Dioxide 24 Anion Gap 15 BUN 8 Creatinine 0.6 L Est GFR ( Amer) > 60 Est GFR (Non-Af Amer) > 60 Random Glucose 104 Calcium 9.4 Total Bilirubin 0.8 AST 54 H ALT 35 Alkaline Phosphatase 141 H Total Protein 8.0 Albumin 4.4 Globulin 3.6 Albumin/Globulin Ratio 1.2 Urine Color Yellow Urine Clarity Cloudy Urine pH 6.0 Ur Specific [place] 1.018 Urine Protein Negative Urine Glucose (UA) Neg Urine Ketones Negative Urine Blood Negative Urine Nitrate Negative Urine Bilirubin Negative Urine Urobilinogen 4.0 H Ur Leukocyte Esterase Neg Urine RBC (Auto) 4 H Urine Microscopic WBC 3 Ur Squamous Epith Cells 5 Urine Bacteria Rare Urine Opiates Screen Urine Methadone Screen Ur Barbiturates Screen Ur Phencyclidine Scrn Ur Amphetamines Screen U Benzodiazepines Scrn U Oth Cocaine Metabols U Cannabinoids Screen Alcohol, Quantitative < 10 08/26/17 00:12 WBC RBC Hgb Hct MCV MCH MCHC RDW Plt Count MPV Neut % (Auto) Lymph % (Auto) [place] % (Auto) Eos % (Auto) Baso % (Auto) Neut # (Auto) Lymph # (Auto) [place] # (Auto) Eos # (Auto) Baso # (Auto) Sodium Potassium Chloride Carbon Dioxide Anion Gap BUN Creatinine Est GFR ( Amer) Est GFR (Non-Af Amer) Random Glucose Calcium Total Bilirubin AST ALT Alkaline Phosphatase Total Protein Albumin Globulin Albumin/Globulin Ratio Urine Color Urine Clarity Urine pH Ur Specific [place] Urine Protein Urine Glucose (UA) Urine Ketones Urine Blood Urine Nitrate Urine Bilirubin Urine Urobilinogen Ur Leukocyte Esterase Urine RBC (Auto) Urine Microscopic WBC Ur Squamous Epith Cells Urine Bacteria Urine Opiates Screen Positive H Urine Methadone Screen Negative Ur Barbiturates Screen Negative Ur Phencyclidine Scrn Negative Ur Amphetamines Screen Negative U Benzodiazepines Scrn Negative U Oth Cocaine Metabols Positive H U Cannabinoids Screen Positive H Alcohol, Quantitative
[2017-08-26 23:12] LABS: BASO % 0.6 % (0.0-2.0); EOS # 0.3 K/uL (0.0-0.7); EOS % 3.2 % (0.0-4.0); HEMOGLOBIN 12.5 g/dL (12.0-16.0); LYMPH # 2.5 K/uL (1.0-4.3); LYMPH % 31.5 % (20.0-40.0); MEAN CELL VOLUME 91.2 fl (81.0-99.0); MEAN CORPUSCULAR HEMOGLOBIN 30.3 pg (27.0-31.0); MEAN CORPUSCULAR HGB CONC 33.2 g/dL (33.0-37.0); MEAN PLATELET VOLUME 9.3 fl (7.2-11.7); MONO # 0.9 K/uL (0.0-0.8); MONO % 11.8 % (0.0-10.0); NEUT # 4.1 K/uL (1.8-7.0); NEUT % 52.9 % (50.0-75.0); NRBC % 0.1 % (0.0-0.0); RBC 4.12 Mil/uL (3.80-5.20); RED CELL DISTRIBUTION WIDTH 16.3 % (11.5-14.5); WHITE BLOOD COUNT 7.8 K/uL (4.8-10.8)
[2017-08-26 23:55] LABS: BLOOD UREA NITROGEN 8 mg/dl (7-17); CALCIUM 9.4 mg/dL (8.4-10.2); GFR AFRICAN-AMERICAN > 60; GFR NON-AFRICAN AMERICAN > 60
[2017-08-26 23:56] LABS: ALB/GLOB RATIO 1.2 (1.0-2.1); ALBUMIN 4.4 g/dL (3.5-5.0); ALT/SGPT 35 U/L (9-52); AST/SGOT 54 U/L (14-36)
[2017-08-27 00:42] LABS: SQUAMOUS EPITHIAL 5 /hpf (0-5); URINE BACTERIA RARE (<OCC); URINE BILIRUBIN NEGATIVE (NEGATIVE); URINE BLOOD NEGATIVE (NEGATIVE); URINE CLARITY CLOUDY (Clear); URINE COLOR YELLOW (YELLOW); URINE GLUCOSE (UA) NEG (Normal); URINE LEUKOCYTE ESTERASE NEG Leu/uL (Negative); URINE PROTEIN NEGATIVE (NEGATIVE)
[2017-08-27 00:51] VITALS: O2SAT 100
[2017-08-27 01:03] LABS: BARBITURATES, UR NEGATIVE (NEGATIVE); BENZODIAZEPINES, UR NEGATIVE (NEGATIVE); OPIATES, UR POSITIVE (NEGATIVE); PHENCYCLIDINE, UR NEGATIVE (NEGATIVE)
[2017-08-27] MEDS ORDERED: Magnesium Hydroxide Susp 30 ml UD PO PRN (01:52)
[2017-08-27] MEDS ORDERED: Alum-Mag Hydrox-Simethicone Susp (30 mL) PO PRN (01:52)
[2017-08-27] MEDS ORDERED: DiphenhydrAMINE 50 mg/ml Inj IM PRN (01:52)
--- NOTE | 2017-08-27 02:53 | PCM.BM ---
<Merna Burger Josephine - Last Filed: 08/27/17 02:51> Treatment Plan Problems - Problems identified on initial assessmt Hopelessness/Helplessness Date Initiated: 08/27/17 Time Initiated: 02:52 Assessment reference: NA Status: Active Self care deficit Date Initiated: 08/27/17 Time Initiated: 02:52 Assessment reference: NA Status: Active Denial Date Initiated: 08/27/17 Time Initiated: 02:53 Assessment reference: NA Status: Active Knowledge Deficit:alcohol use Date Initiated: 08/27/17 Time Initiated: 02:53 Assessment reference: NA Status: Active Treatment assets and liabiliti Patient Assests: adapts well (Chronic, Anemia), cooperative, self-reliant, ADL independent, negotiates basic needs, cognitively intact Patient Liabilities: poor support system, relationship conflicts, substance abuse, other (noncompliance with meds) - Milieu Protocol Maintain good personal hygiene: daily Assist patient to perform ADL's, every shift Encourage regular showers, every shift Remind patient to perform daily oral care Conduct patient checks and document Observation sheet: Q15 minutes Maintain personal safety: every shift Educate patient to report safety concerns to staff, every shift Monitor environment for contraband/sharps Medication safety: Monitor for expected outcome, potential side effects: every shift, Assess barriers to learning: daily, Assess readiness for medication education: every shift <Jovita Chadwick - Last Filed: 08/31/17 09:27> - Diagnosis (1) Substance induced mood disorder Status: Acute Interventions: Medication management, Individual and group therapy, Psychoeducation 08/31/17 09:28 (2) Substance-induced psychotic disorder Status: Acute Interventions: Medication management, Individual and group therapy, Psychoeducation 08/31/17 09:29 (3) Cocaine abuse Status: Acute Interventions: Motivational Interviewing, Individual and group therapy, Psychoeducation 08/31/17 09:29 (4) Opiate abuse, continuous Status: Acute Interventions: Medication management, Individual and group therapy, Psychoeducation 08/31/17 09:29 (5) Alcohol abuse Status: Acute Interventions: Medication management, Individual and group therapy, Psychoeducation 08/31/17 09:29 <Macey Fairchild - Last Filed: 08/31/17 16:34> Treatment assets and liabiliti Patient Assests: adapts well, cooperative, resourceful, self-reliant, ADL independent, physically healthy, negotiates basic needs, cognitively intact Patient Liabilities: live alone (homeless), financial problems, poor support system, substance abuse Family Contact Family involvement: Patient does not wish Family/SO involvement Family contact: Patient declines to allow family contact at present - Goals for Treatment Patient goals for treatment: Patient to continue stabilization on 3NP through medication management and group/supportive therapy to address sxs of depression and eliminate SI/AH/VH. Patient to be encouraged to attend groups regularly to promote self-awareness, maintained sobriety, and improve insight, compliance, coping skills and self-esteem. Patient to be provided with referral for appropriate level of aftercare to reduce risk of future hospitalizations and ensure safety in the community. Discharge/Continuing Care - Education Needs Education Needs: Patient Medication, Patient Diagnosis/Disease Process, Patient Coping Skills, Patient Community resources, Patient Aftercare Safety Plan - Discharge Discharge Criteria: Tolerates medication w/o severe side effects, Free of Suicidal thoughts, Free of agitation, Normal sleep pattern, Ability to care for self, Reduction of target symptoms Discharge to:: Halfway - Treatment Team Participation Patient/Family/SO Statement: 08/31/17 16:34 Patient invited to tx team this morning to discuss progress on 3NP and tx goals. Pt. continues to report sxs of depression but to a lesser degree than upon admission. Pt. reports poor energy and motivation. Pt. continues to present with c/o anxiety. Pt. remains socially withdrawn but is increasingly more visible on 3NP and better able to tolerate group setting with peers. Pt. reported visual hallucinations of shadows. Medication management discussed at length. Pt. agreeable. Discussed with Family/SO: No Was Patient/Family/SO present at Treatment Team Meeting: Yes
[2017-08-27] MEDS: Multivitamin With Minerals Tab PO SCH (09:23)
--- NOTE | 2017-08-27 10:30 | PCM.PSYCH ---
Initial Psychiatric Evaluation - Initial Psychiatric Evaluation Type of Admission: Voluntary Legal Status: Capacity Chief Complaint (in patient's own words): i relapsed Patient's Reaction to Hospitalization: pt is depressed History of Present Illness and Precipitating Events: This is a 47 y/o AAF with h/o schizoaffective disorder,depression long standing substance abuse, multiple drug rehab treatments including multiple psych admissions, recently discharged from [facility], diagnosed with depression with history of past suicidal attempt.by alleged cutting, and jumping off the 3rd floor building,.Pt was BIB by alleged friends to ER for worsening of depression with suicidal in the setting of substance use (cocaine, alcohol and heroin) and recent of a nephew two weeks ago. She allegedly relapsed on substances and stopped her medications few days ago and her depression started a week ago. SHe hasbeen prescribed gabapentin,trazodone and seroquel but stopped her meds few days ago. She reports poor appetite, not sleeping at night time and low energy. She reported started using heroin two days ago and uses cocaine 1-2x a week with alcohol use of 2-3 beers daily. SHe denies, withdrawal symptoms, tremulousness, and seizures related to alcohol. No withdrawal symptoms noted. Current Medications: Active Medications Generic Name Dose Route Start Last Admin Trade Name Freq PRN Reason Stop Dose Admin Acetaminophen 650 mg 08/27/17 01:52 Tylenol 325mg Tab PO Q4 PRN Pain, moderate (4-7) Al Hydrox/Mg Hydrox/Simethicone 30 ml 08/27/17 01:52 Maalox Plus 30 Ml PO Q4 PRN Dyspepsia Clonidine HCl 0.1 mg 08/27/17 09:00 08/27/17 09:23 Catapres PO 08/30/17 09:01 0.1 mg Q8 ANISA Administration Diphenhydramine HCl 50 mg 08/27/17 01:52 Benadryl IM Q6 PRN Extrapyramidal S/S Unable PO Diphenhydramine HCl 50 mg 08/27/17 01:52 Benadryl PO Q6 PRN Extrapyramidal Symptoms Haloperidol 5 mg 08/27/17 01:52 Haldol PO Q4 PRN Agitation Haloperidol Lactate 5 mg 08/27/17 01:52 Haldol IM Q4 PRN Agitation, Unable to Take PO Ibuprofen 800 mg 08/27/17 03:45 Motrin Tab PO 08/30/17 02:00 Q6 PRN Pain, Mild (1-3) Loperamide HCl 2 mg 08/27/17 01:59 Imodium PO Q4 PRN After Loose Bowel Movement Lorazepam 1 mg 08/27/17 01:52 Ativan PO Q8 PRN Anxiety/Agitation Magnesium Hydroxide 30 ml 08/27/17 01:52 Milk Of Magnesia PO HS PRN Constipation Multivitamins/Minerals 1 tab 08/27/17 09:00 08/27/17 09:23 Therapeutic-M Tab PO 1 tab DAILY ANISA Administration Nicotine 1 patch 08/27/17 09:00 08/27/17 09:23 Nicoderm Cq TD Not Given DAILY ANISA Trazodone HCl 50 mg 08/27/17 22:00 Desyrel PO HS ANISA Past Psychiatric History - Past Psychiatric History History of Abuse: SEE HPI History of ETOH/Drug Use: SEE HPI History of Family Illness: not known Pertinent Medical Hx (Current Medical&Sleep Prob, Allergies): Allergies Allergy/AdvReac Type Severity Reaction Status Date / Time Penicillins AdvReac RASH Verified 08/26/17 21:53 Clonazepam [Klonopin] 1 tab PO DAILY 08/26/17 QUEtiapine [SEROquel] 100 mg PO DAILY 08/26/17 QUEtiapine [SEROquel] 300 mg PO HS 08/26/17 traZODone [Desyrel] 100 mg PO HS 08/26/17 Asthma,HTN,Anemia
[2017-08-28 08:21] LABS: HDL CHOLESTEROL 58 MG/DL (30-70)
[2017-08-28 08:38] LABS: T4 5.74 ug/dl (5.5-11.0)
[2017-08-28 08:44] LABS: LDL CHOLESTEROL < 30 mg/dL (0-129)
[2017-08-28] MEDS: Multivitamin With Minerals Tab PO SCH (09:07)
--- NOTE | 2017-08-28 16:17 | PCM.PYCHPN ---
Psychiatric Progress Note - Psychiatric Progress Note Patient seen today, length of contact: pt evaluated discussed with team chart reviewed Patient Chief Complaint: I am depressed Problems Identified/Issues Discussed: pt on evaluation, depressed anhedonic, with low energy, seclusive in her room, discussed with pt attending groups and participation in treatment motivational therapy provided, discussed referal to inpatient rehab on discharge pt denied any current suicidal ideation or thoughts of self harm denied any current perceptual disturbances DSM 5 Symptoms Update: substance induced mood disorder bipolar disorder depressed Medication Change: No Medical Record Reviewed: Yes Mental Status Examination - Cognitive Function Orientation: Person, Place Attention: WNL Concentration: WNL Association: WNL Fund of Knowledge: Poor Decription of patient's judgement and insights: poor insight and judgment - Mood Mood: Depressed, Anxious - Affect Affect: Constricted - Speech Speech: Soft - Formal Thought Process Formal Thought Process: Circumstantial Psychotic Thoughts and Behaviors: denied perceptual disturbances - Suicidal Ideation Suicidal Ideation: No - Homicidal Ideation Homicidal Ideation: No Goal/Treatment Plan - Goal/Treatment Plan Need for Continued Stay: Severe depression anxiety, Discharge may exacerbated symptoms, Failed transitioning Progress Toward Problem(s) and Goals/Treatment Plan: continue with clonidine protocl neurontin, seroquel monitor vitals for withdrawal symptoms encourage to attend groups motivational therapy
[2017-08-29] MEDS: Multivitamin With Minerals Tab PO SCH (09:10)
--- NOTE | 2017-08-29 14:44 | PCM.PYCHPN ---
Psychiatric Progress Note - Psychiatric Progress Note Patient seen today, length of contact: pt evaluated discussed with team chart reviewed Patient Chief Complaint: I am feeling down because of the withdrawals Problems Identified/Issues Discussed: pt seen in bed, presenting with depressed mood and affect, reported low energy due to withdrawal symptoms, motivational therapy provided, discussed with pt referral to rehab on discharge pt reported poor appetite, denied active suicidal plan or intent on the unit denied command halluciantions, no reported side effects of medications DSM 5 Symptoms Update: substance induced mood disorder bipolar disorder Medication Change: No Medical Record Reviewed: Yes Mental Status Examination - Cognitive Function Orientation: Person, Place Attention: WNL Concentration: WNL Association: WNL Fund of Knowledge: Poor Decription of patient's judgement and insights: poor insight and judgment - Mood Mood: Depressed, Anxious - Affect Affect: Constricted - Speech Speech: Soft - Formal Thought Process Formal Thought Process: Circumstantial Psychotic Thoughts and Behaviors: denied perceptual disturbances - Suicidal Ideation Suicidal Ideation: No - Homicidal Ideation Homicidal Ideation: No Goal/Treatment Plan - Goal/Treatment Plan Need for Continued Stay: Severe depression anxiety, Discharge may exacerbated symptoms, Failed transitioning Progress Toward Problem(s) and Goals/Treatment Plan: continue with clonidine protocl neurontin, seroquel monitor vitals for withdrawal symptoms encourage to attend groups motivational therapy
[2017-08-30] MEDS: Multivitamin With Minerals Tab PO SCH (09:44)
--- NOTE | 2017-08-30 12:07 | PCM.PYCHPN ---
Psychiatric Progress Note - Psychiatric Progress Note Patient seen today, length of contact: pt evaluated discussed with team chart reviewed Patient Chief Complaint: I am still depressed Problems Identified/Issues Discussed: pt seen in bed, continues to report depressed mood ,affect depressed and constricted , reported low energy due to withdrawal symptoms, motivational therapy provided, discussed with pt referral to rehab on discharge pt denied any current active suicidal plan or intent on the unit denied command halluciantions, no reported side effects of medications DSM 5 Symptoms Update: substance induced mood disorder bipolar disorder Medication Change: No Medical Record Reviewed: Yes Mental Status Examination - Cognitive Function Orientation: Person, Place Attention: WNL Concentration: WNL Association: WNL Fund of Knowledge: Poor Decription of patient's judgement and insights: poor insight and judgment - Mood Mood: Depressed, Anxious - Affect Affect: Constricted - Speech Speech: Soft - Formal Thought Process Formal Thought Process: Circumstantial Psychotic Thoughts and Behaviors: denied perceptual disturbances - Suicidal Ideation Suicidal Ideation: No - Homicidal Ideation Homicidal Ideation: No Goal/Treatment Plan - Goal/Treatment Plan Need for Continued Stay: Severe depression anxiety, Discharge may exacerbated symptoms, Failed transitioning Progress Toward Problem(s) and Goals/Treatment Plan: neurontin, seroquel monitor vitals for withdrawal symptoms encourage to attend groups motivational therapy referral to rehab on discharge
--- NOTE | 2017-08-30 21:21 | CON ---
DATE: 08/29/2017 HISTORY OF PRESENT ILLNESS: This is a 47-year-old -Martiniquais female with history of multiple substance abuse as well as osteoarthritis, status post multiple left knee injections at [facility]. The patient was admitted to psychiatry floor and medical consultation was called for medical followup while the patient was in the medicine floor. The patient did not show any symptoms of shortness of breath, chest pain, nausea, vomiting, abdominal pain, diarrhea, or any other symptoms suggestive of withdrawal. Other review of system is negative except for pain on the left knee. ALLERGIES: POSITIVE FOR PENICILLIN. MEDICATIONS: Reviewed as per MAR. SOCIAL HISTORY: Positive for multiple substance abuse, positive for smoking and EtOH abuse. FAMILY HISTORY: Not contributory. PAST MEDICAL HISTORY: Osteoarthritis, multiple substance abuse, and longstanding psychiatric history. PHYSICAL EXAMINATION: GENERAL: The patient was not in any cardiopulmonary distress at the time of this examination. VITAL SIGNS: Blood pressure 110/70, temperature 97, respiratory rate 16, and pulse 80. HEENT: Pupils equal and reactive to light. Normal-appearing mucosa of the conjunctivae, oropharyngeal, and nasal membrane mucosa. NECK: Supple. No JVD. No carotid bruit. No lymph node. No thyromegaly. CHEST AND LUNGS: Bilateral symmetrical expansion. Good air exchange. No rales, no rhonchi. CARDIOVASCULAR SYSTEM: PMI not localized. S1, S2. No additional sounds. ABDOMEN: Normoactive bowel sounds. No tenderness. No organomegaly. No masses. EXTREMITIES: No cyanosis, no clubbing, no edema. There is crepitation on the both knees, left more than right. BLUEPRINT READER: Alert, awake, oriented x2. No neurological deficit could be appreciated. ASSESSMENT: 1. Degenerative disease of both knees, left more than right. 2. Multiple substance abuse with currently no withdrawal symptoms. 3. Low TSH was 0.04 with normal T4, likely to be due to sick euthyroid. PLAN: We will start the patient on naproxen and Pepcid for the knee pain, and we will observe the patient for any substance withdrawal, and we will repeat thyroid function as the patient will improve. Stephanie Garcia MD [facility] # [phone]
--- NOTE | 2017-08-31 08:55 | PCM.PYCHPN ---
Psychiatric Progress Note - Psychiatric Progress Note Patient seen today, length of contact: Patient evaluated, case discussed with team, chart reviewed Patient Chief Complaint: "I'm depressed." Problems Identified/Issues Discussed: Patient continues to report that she feels depressed and hopeless w/ low motivation and poor sleep. +Improving appetite. +See shadows intermittently, which she finds distressed. No AH/SI/HI. No adverse effects to medications reported. Medication Change: No Medical Record Reviewed: Yes Consults ordered or reviewed: Medicine consult Mental Status Examination - Cognitive Function Orientation: Person, Place, Situation, Time Memory: Intact Attention: WNL Concentration: WNL Association: [facility] Fund of Knowledge: [facility] Decription of patient's judgement and insights: Poor I/J - Mood Mood: Depressed, Anxious - Affect Affect: Constricted - Speech Speech: Soft - Formal Thought Process Formal Thought Process: Hallucinations, Circumstantial Psychotic Thoughts and Behaviors: Visual hallucinations of shadows - Suicidal Ideation Suicidal Ideation: No - Homicidal Ideation Homicidal Ideation: No Goal/Treatment Plan - Goal/Treatment Plan Need for Continued Stay: Severe depression anxiety, Discharge may exacerbated symptoms, Failed transitioning Progress Toward Problem(s) and Goals/Treatment Plan: Substance Induced Mood and Psychotic Disorder vs Schizoaffective Disorder vs Bipolar Disorder w/ Psychotic Features; Opioid/Alcohol/Cocaine Use Disorders -Individual and group therapy -Psychoeducation -Medicine consult -Continue Neurontin 300 mg PO TID -Continue Seroquel 300 mg PO AMHS -Continue Trazodone 100 mg PO HS -Nicotine patch -Disposition planning Estimated Date of D/C: 09/04/17 - Smoking Cessation Smoking Cessation Initiated: Yes
[2017-08-31] MEDS: Multivitamin With Minerals Tab PO SCH (09:20)
[2017-09-01] MEDS: Multivitamin With Minerals Tab PO SCH (08:35)
--- NOTE | 2017-09-01 09:48 | PCM.PYCHPN ---
Psychiatric Progress Note - Psychiatric Progress Note Patient seen today, length of contact: Patient evaluated, case discussed with team, chart reviewed Patient Chief Complaint: "I'm depressed." Problems Identified/Issues Discussed: Patient continues to report that she feels depressed, but is more hopeful of the future and reports that her mood is improving. She reports improved sleep/ appetite. She continues to see shadows intermittently, which she finds distressing. No AH/SI/HI. No adverse effects to medications reported. Medication Change: Yes (Increase Seroquel to 300 mg PO AM/ 350 mg PO HS) Medical Record Reviewed: Yes Consults ordered or reviewed: Medicine consult Mental Status Examination - Cognitive Function Orientation: Person, Place, Situation, Time Memory: Intact Attention: WNL Concentration: WNL Association: WNL Fund of Knowledge: WN Decription of patient's judgement and insights: Poor I/J - Mood Mood: Depressed - Affect Affect: Constricted - Speech Speech: Soft - Formal Thought Process Formal Thought Process: Hallucinations Psychotic Thoughts and Behaviors: Visual hallucinations of shadows - Suicidal Ideation Suicidal Ideation: No - Homicidal Ideation Homicidal Ideation: No Goal/Treatment Plan - Goal/Treatment Plan Need for Continued Stay: Severe depression anxiety, Discharge may exacerbated symptoms, Failed transitioning Progress Toward Problem(s) and Goals/Treatment Plan: Substance Induced Mood and Psychotic Disorder vs Schizoaffective Disorder vs Bipolar Disorder w/ Psychotic Features; Opioid/Alcohol/Cocaine Use Disorders -Individual and group therapy -Psychoeducation -Medicine consult -Continue Neurontin 300 mg PO TID -Increase Seroquel to 300 mg PO AM/ 350 mg PO HS -Continue Trazodone 100 mg PO HS -Nicotine patch -Disposition planning Estimated Date of D/C: 09/04/17
[2017-09-02] MEDS: Multivitamin With Minerals Tab PO SCH (09:07)
--- NOTE | 2017-09-02 10:08 | PCM.PYCHPN ---
Psychiatric Progress Note - Psychiatric Progress Note Patient seen today, length of contact: Patient evaluated, case discussed with team, chart reviewed Patient Chief Complaint: "I'm depressed." Problems Identified/Issues Discussed: Patient continues to report that she feels depressed, but is more hopeful of the future and reports that her mood continues to improve. She reports improved sleep/appetite. She continues to see shadows intermittently. No AH/SI /HI. No adverse effects to medications reported. Medication Change: No Medical Record Reviewed: Yes Consults ordered or reviewed: Medicine consult Mental Status Examination - Cognitive Function Orientation: Person, Place, Situation, Time Memory: Intact Attention: WNL Concentration: WNL Association: WNL Fund of Knowledge: [facility] Decription of patient's judgement and insights: Poor I/J - Mood Mood: Depressed - Affect Affect: Broad - Speech Speech: Soft - Formal Thought Process Formal Thought Process: Hallucinations Psychotic Thoughts and Behaviors: Intermittent visual hallucinations of shadows - Suicidal Ideation Suicidal Ideation: No - Homicidal Ideation Homicidal Ideation: No Goal/Treatment Plan - Goal/Treatment Plan Need for Continued Stay: Severe depression anxiety, Discharge may exacerbated symptoms Progress Toward Problem(s) and Goals/Treatment Plan: Substance Induced Mood and Psychotic Disorder vs Schizoaffective Disorder vs Bipolar Disorder w/ Psychotic Features; Opioid/Alcohol/Cocaine Use Disorders -Individual and group therapy -Psychoeducation -Medicine consult -Continue Neurontin 300 mg PO TID -Continue Seroquel 300 mg PO AM/ 350 mg PO HS -Continue Trazodone 100 mg PO HS -Nicotine patch -Disposition planning Estimated Date of D/C: 09/04/17
--- NOTE | 2017-09-02 21:23 | PN ---
DATE: 09/02/2017 DAILY PROGRESS NOTE SUBJECTIVE: She is not in any cardiopulmonary distress and pain is improving since she started on naproxen of her knees. OBJECTIVE: VITAL SIGNS: Blood pressure 111/73, temperature 98.5, respiratory rate 18, and pulse 75. HEENT: Pupils equal, reactive to light. Normal-appearing mucosa of the conjunctivae, oropharynx and nasal membrane mucosa. NECK: Supple. No JVD. No carotid bruit. No lymph node. No thyromegaly. CHEST/LUNGS: Bilateral symmetrical expansion. Good air exchange. No rales, no rhonchi. CARDIOVASCULAR: PMI not localized. S1, S2. No additional sounds. ABDOMEN: Normoactive bowel sounds. No tenderness. No organomegaly. No masses. EXTREMITIES: No cyanosis, no clubbing, no edema. HR CONSULTANT: Alert, awake, oriented x2. No neurological deficit could be appreciated. ASSESSMENT: Osteoarthritis, multiple drug abuse. PLAN: Continue current nonsteroidal anti-inflammatory medications as needed for pain and monitor for any withdrawal symptoms. Stephanie Garcia MD
--- NOTE | 2017-09-03 08:05 | PCM.PYCHPN ---
Psychiatric Progress Note - Psychiatric Progress Note Patient seen today, length of contact: Patient evaluated, case discussed with team, chart reviewed Patient Chief Complaint: "I'm feeling better." Problems Identified/Issues Discussed: Patient is improving clinically. She reports improvement in mood, improved sleep/appetite. No current AH/VH/SI/HI. No adverse effects to medications reported. Medication Change: No Medical Record Reviewed: Yes Consults ordered or reviewed: Medicine consult Mental Status Examination - Cognitive Function Orientation: Person, Place, Situation, Time Memory: Intact Attention: WNL Concentration: WNL Association: WNL Fund of Knowledge: [facility] Decription of patient's judgement and insights: Poor I/J - Mood Mood: Depressed - Affect Affect: Broad - Speech Speech: Appropriate - Formal Thought Process Formal Thought Process: No Impairment Psychotic Thoughts and Behaviors: No AH/VH/paranoia/delusions - Suicidal Ideation Suicidal Ideation: No - Homicidal Ideation Homicidal Ideation: No Goal/Treatment Plan - Goal/Treatment Plan Need for Continued Stay: Discharge may exacerbated symptoms Progress Toward Problem(s) and Goals/Treatment Plan: Substance Induced Mood and Psychotic Disorder vs Schizoaffective Disorder vs Bipolar Disorder w/ Psychotic Features; Opioid/Alcohol/Cocaine Use Disorders -Individual and group therapy -Psychoeducation -Medicine consult -Continue Neurontin 300 mg PO TID -Continue Seroquel 300 mg PO AM/ 350 mg PO HS -Continue Trazodone 100 mg PO HS -Nicotine patch -Disposition planning Estimated Date of D/C: 09/04/17
[2017-09-03] MEDS: Multivitamin With Minerals Tab PO SCH (08:36)
[2017-09-04 06:17] VITALS: BP 113/62; PULSE 76; RESP 18; TEMP 98.1
[2017-09-04] MEDS: Multivitamin With Minerals Tab PO SCH (08:32)
--- NOTE | 2017-09-04 08:49 | PCM.PYCHDC ---
Mental Status Examination - Mental Status Examination Orientation: Person, Place, Situation, Time Memory: Intact Mood: Neutral Affect: Broad Speech: Appropriate Attention: WNL Concentration: WNL Association: WNL Fund of Knowledge: WNL Formal Thought Process: No Impairment Description of patient's judgement and insight: Fair I/J Psychotic Thoughts and Behaviors: No AH/VH/paranoia/delusions Suicidal Ideation: No Current Homicidal Ideation?: No Discharge Summary - Discharge Note Reason for Hospitalization: As per HPI: This is a 47 y/o AAF with h/o schizoaffective disorder,depression long standing substance abuse, multiple drug rehab treatments including multiple psych admissions, recently discharged from [facility], diagnosed with depression with history of past suicidal attempt.by alleged cutting, and jumping off the 3rd floor building,.Pt was BIB by alleged friends to ER for worsening of depression with suicidal in the setting of substance use (cocaine, alcohol and heroin) and recent of a nephew two weeks ago. She allegedly relapsed on substances and stopped her medications few days ago and her depression started a week ago. SHe hasbeen prescribed gabapentin,trazodone and seroquel but stopped her meds few days ago. She reports poor appetite, not sleeping at night time and low energy. She reported started using heroin two days ago and uses cocaine 1-2x a week with alcohol use of 2-3 beers daily. SHe denies, withdrawal symptoms, tremulousness, and seizures related to alcohol. No withdrawal symptoms noted. Consultations:: List each consultation separately and include: 1. Reason for request. 2. Findings. 3. Follow-up Consultations: Medicine consult Summary of Hospital Course include:: 1. Description of specific treatment plan utilized for patients during their course of treatmen. 2. Summarize the time- course for resolution of acute symptoms and/or regressed behaviors. 3. Describe issues identified and worked on during hospitalization. 4. Describe medication utilized. 5. Describe medical problems identified and treated. 6. Reassessment of suicide risk Summary of Hospital Course: Patient was admitted to the hospital. Individual and group therapy were provided. Patient was stabilized on Seroquel and Trazodone. She denies acute depression/anxiety/AH/VH/paranoia/delusions/SI/HI. She is currently psychiatrically stable for discharge. Psychoeducation provided on the dangers of substance abuse. - Diagnosis (1) Substance induced mood disorder Current Visit: No Status: Chronic (2) Substance-induced psychotic disorder Current Visit: Yes Status: Chronic (3) Cocaine abuse Current Visit: No Status: Chronic (4) Opiate abuse, continuous Current Visit: No Status: Chronic (5) Alcohol abuse Current Visit: Yes Status: Chronic - Final Diagnosis (DSM 5) Condition upon Discharge: STABLE DSM 5: Substance Induced Mood and Psychotic Disorder; Opioid/Alcohol/Cocaine Use Disorders Disposition: HOME/ ROUTINE Follow-up Treatment Plan: Substance Induced Mood and Psychotic Disorder; Opioid/Alcohol/Cocaine Use Disorders -Individual and group therapy -Psychoeducation -Medicine consult appreciated -Continue Neurontin 300 mg PO TID -Continue Seroquel 300 mg PO AM/ 350 mg PO HS -Continue Trazodone 100 mg PO HS -Nicotine patch during admission; patient declined outpatient prescription Prescriptions/Medication Reconciliation: Docusate [Colace] 100 mg PO BID #60 cap Famotidine [Pepcid] 20 mg PO DAILY #30 tab Gabapentin [Neurontin] 300 mg PO TID #90 cap QUEtiapine [SEROquel] 300 mg PO AMHS #60 tab Quetiapine Fumarate [Seroquel] 50 mg PO HS #30 tablet traZODone [Desyrel] 100 mg PO HS #30 tab - Smoking Cessation Smoking Cessation Medication prescribed: Yes - Antipsychotic Medications Pt discharged on 2 or more routine antipsychotic medications: No
== END 2017-09-04 11:00 | disposition home or self-care (01) | DRG 747 ==
LOC: H.ER 21:47 → H.ERHOLD 08-27 00:49 → H.PSYCH 08-27 02:30 → H.STEP 09-03 09:09
PROVIDERS: ADMIT Psychiatry & Neurology Psychiatry; ATTEND Psychiatry & Neurology Psychiatry
DX: F11.159 Opioid abuse with opioid-induced psychotic disorder, unspecified (principal); F25.9 Schizoaffective disorder, unspecified; F14.159 Cocaine abuse with cocaine-induced psychotic disorder, unspecified; E07.81 Sick-euthyroid syndrome; F10.10 Alcohol abuse, uncomplicated; F17.210 Nicotine dependence, cigarettes, uncomplicated; F31.9 Bipolar disorder, unspecified; F41.9 Anxiety disorder, unspecified; J45.909 Unspecified asthma, uncomplicated; M19.90 Unspecified osteoarthritis, unspecified site; R45.851 Suicidal ideations; Z59.0 Homelessness; Z79.899 Other long term (current) drug therapy; Z91.5 Personal history of self-harm

== ENCOUNTER 2017-10-18 01:42 | Inpatient (IN) | payer MEDICAID ==
[2017-10-18 01:43] VITALS: BMI 25.0
[2017-10-18 01:59] VITALS: O2SAT 100
--- NOTE | 2017-10-18 02:24 | ED PDOC ---
HPI: Psych/Substance Abuse Time Seen by Provider: 10/18/17 02:09 Chief Complaint (Nursing): Psychiatric Evaluation Chief Complaint (Provider): Psychiatric Evaluation History Per: Patient History/Exam Limitations: no limitations Onset/Duration Of Symptoms: Persistent (x1 week) Current Symptoms Are (Timing): Still Present Additional Complaint(s): 47 year old female with pmHx of bipolar disorder, schizophrenia and heroin abuse arrives to ED for evaluation of depression and suicidal ideation ongoing for 1 week. Patient states she has thoughts of jumping off a bridge or cutting herself despite compliance with her psych medications. She reports last heroin use was yesterday. PMD: Dr. Abigail Thornton Past Medical History Reviewed: Historical Data, Nursing Documentation, Vital Signs Vital Signs: Last Vital Signs Temp 97.5 F L 10/18/17 01:55 Pulse 110 H 10/18/17 01:55 Resp 18 10/18/17 01:55 BP 120/73 10/18/17 01:55 Pulse Ox 100 10/18/17 01:55 - Medical History PMH: Anemia, Anxiety, Asthma, Bipolar Disorder, Depression, HTN, Schizophrenia Denies: Arthritis, Crohn's Disease, Diabetes, Diverticulitis, Fractures, Gastritis, Gall Bladder Disease, Hepatitis, HIV, Hyperthyroidism, Hypothyroidism , Kidney Stones, Osteoporosis, Pancreatitis, Chronic Kidney Disease, Rheumatoid Arthritis, Seizures, Sexually Transmitted Disease - Surgical History Surgical History: Cholecystectomy - Family History Family History: States: Unknown Family Hx - Social History Current smoker - smoking cessation education provided: Yes Alcohol: None Drugs: Other (heroin) - Immunization History Hx Tetanus Toxoid Vaccination: No Hx Influenza Vaccination: Yes Hx Pneumococcal Vaccination: No - Home Medications Home Medications: Ambulatory Orders Medication Instructions Recorded Gabapentin [Neurontin] 300 mg PO TID #45 cap 10/17/17 Quetiapine Fumarate [Seroquel] 300 mg PO AMHS #30 tablet 10/17/17 Zolpidem [Ambien] 5 mg PO HS PRN #14 tab 10/17/17 traZODone [Desyrel] 100 mg PO HS #14 tab 10/17/17 - Allergies Allergies/Adverse Reactions: Allergies Allergy/AdvReac Type Severity Reaction Status Date / Time Penicillins AdvReac RASH Verified 10/13/17 04:37 Review of Systems ROS Statement: Except As Marked, All Systems Reviewed And Found Negative Psych: Positive for: Depression, Suicidal ideation Physical Exam - Reviewed Nursing Documentation Reviewed: Yes Vital Signs Reviewed: Yes - Physical Exam Appears: Positive for: No Acute Distress Head Exam: Positive for: ATRAUMATIC, NORMAL INSPECTION, NORMOCEPHALIC Skin: Positive for: Normal Color Eye Exam: Positive for: Normal appearance ENT: Positive for: Normal ENT Inspection Neck: Positive for: Normal Cardiovascular/Chest: Positive for: Regular Rate, Rhythm Respiratory: Positive for: Normal Breath Sounds. Negative for: Respiratory Distress Extremity: Positive for: Normal ROM (upper/lower) Neurologic/Psych: Positive for: Alert (x3), Oriented, Mood/Affect (flat/ depressed). Negative for: Motor/Sensory Deficits - ECG O2 Sat by Pulse Oximetry: 100 (RA) Pulse Ox Interpretation: Normal Medical Decision Making Medical Decision Making: Initial Impression: 47 year old female with depression and suicidal ideation in setting of known psychiatric history. Initial Plan: * Drug screen, urine * Crisis evaluation * Labs Time: 0308 --Upon crisis evaluation, patient will require psychiatric admission, as per Dr. Chadwick. Clinical Impression: Schizophrenia; Depression Scribe Attestation: Documented by Maribel Ferris, acting as a scribe for Sorin Suh MD. Provider Scribe Attestation: All medical record entries made by the Scribe were at my direction and personally dictated by me. I have reviewed the chart and agree that the record accurately reflects my personal performance of the history, physical exam, medical decision making, and the department course for this patient. I have also personally directed, reviewed, and agree with the discharge instructions and disposition. Disposition - Clinical Impression Clinical Impression: Depression, Schizophrenia - Patient ED Disposition Is Patient to be Admitted: No Counseled Patient/Family Regarding: Studies Performed, Diagnosis - Disposition Referrals: Abigail Thornton MD [Family Provider] - Disposition Time: 03:08 Condition: FAIR Forms: [employer] (Latvian)
[2017-10-18 02:38] LABS: SQUAMOUS EPITHIAL 2 /hpf (0-5); URINE BACTERIA RARE (<OCC); URINE BILIRUBIN NEGATIVE (NEGATIVE); URINE BLOOD NEGATIVE (NEGATIVE); URINE CLARITY SLIGHTY-CLOUDY (Clear); URINE COLOR YELLOW (YELLOW); URINE GLUCOSE (UA) NEG (Normal); URINE LEUKOCYTE ESTERASE NEG Leu/uL (Negative); URINE PROTEIN NEGATIVE (NEGATIVE); URINE UROBILINOGEN 0.2-1.0 mg/dL (0.2-1.0)
[2017-10-18 03:19] LABS: BARBITURATES, UR NEGATIVE (NEGATIVE); BENZODIAZEPINES, UR NEGATIVE (NEGATIVE); OPIATES, UR POSITIVE (NEGATIVE); PHENCYCLIDINE, UR NEGATIVE (NEGATIVE)
[2017-10-18 03:50] LABS: BASO % 0.4 % (0.0-2.0); EOS # 0.3 K/uL (0.0-0.7); EOS % 2.4 % (0.0-4.0); HEMOGLOBIN 12.8 g/dL (12.0-16.0); LYMPH % 22.3 % (20.0-40.0); MEAN CELL VOLUME 89.6 fl (81.0-99.0); MEAN CORPUSCULAR HEMOGLOBIN 30.4 pg (27.0-31.0); MEAN CORPUSCULAR HGB CONC 33.9 g/dL (33.0-37.0); MONO # 1.3 K/uL (0.0-0.8); MONO % 9.7 % (0.0-10.0); NEUT # 8.7 K/uL (1.8-7.0); NEUT % 65.2 % (50.0-75.0); NRBC % 0.3 % (0.0-0.0); RBC 4.21 Mil/uL (3.80-5.20); RED CELL DISTRIBUTION WIDTH 15.1 % (11.5-14.5); WHITE BLOOD COUNT 13.3 K/uL (4.8-10.8)
[2017-10-18 04:04] LABS: ALB/GLOB RATIO 1.3 (1.0-2.1); ALBUMIN 4.3 g/dL (3.5-5.0); CALCIUM 9.3 mg/dL (8.4-10.2); GFR NON-AFRICAN AMERICAN > 60
[2017-10-18 04:08] LABS: ALT/SGPT 82 U/L (9-52); AST/SGOT 58 U/L (14-36); BLOOD UREA NITROGEN 17 mg/dl (7-17)
[2017-10-18] MEDS ORDERED: Alum-Mag Hydrox-Simethicone Susp (30 mL) PO PRN (05:40)
[2017-10-18] MEDS ORDERED: DiphenhydrAMINE 50 mg/ml Inj IM PRN (05:40)
[2017-10-18] MEDS ORDERED: Magnesium Hydroxide Susp 30 ml UD PO PRN (05:40)
--- NOTE | 2017-10-18 05:53 | PCM.BM ---
<Molly Duggan P - Last Filed: 10/18/17 05:52> Treatment Plan Problems - Problems identified on initial assessmt Auditory Hallucinations Date Initiated: 10/18/17 Time Initiated: 05:52 Assessment reference: NA Status: Active Visual Hallucinations Date Initiated: 10/18/17 Time Initiated: 05:52 Assessment reference: NA Status: Active Hopelessness/Helplessness Date Initiated: 10/18/17 Time Initiated: 05:53 Assessment reference: NA Status: Active Treatment assets and liabiliti Patient Assests: adapts well, cooperative, resourceful, self-reliant, ADL independent, physically healthy, negotiates basic needs, cognitively intact Patient Liabilities: poor support system, substance abuse - Milieu Protocol Maintain good personal hygiene: daily Encourage regular showers, daily Remind patient to perform daily oral care, daily Assist patient to perform ADL's Conduct patient checks and document Observation sheet: Q15 minutes Maintain personal safety: every shift Educate patient to report safety concerns to staff, every shift Monitor environment for contraband/sharps Medication safety: Monitor for expected outcome, potential side effects: every shift, Assess barriers to learning: every shift, Assess readiness for medication education: every shift <Betzy Olson - Last Filed: 10/23/17 12:45> - Diagnosis (1) Heroin abuse Status: Acute
--- NOTE | 2017-10-18 07:27 | CARD ---
APPROVED REPORT Date of service: 10/18/2017 <Conclusion> Normal sinus rhythm Normal ECG
--- NOTE | 2017-10-18 08:32 | RAD ---
Date of service: 10/18/2017 HISTORY: admit COMPARISON: 07/25/2017 FINDINGS: LUNGS: No active pulmonary disease. PLEURA: No significant pleural effusion identified, no pneumothorax apparent. CARDIOVASCULAR: Normal. OSSEOUS STRUCTURES: No significant abnormalities. VISUALIZED UPPER ABDOMEN: Normal. OTHER FINDINGS: None. IMPRESSION: No active disease. No interval pathology noted
[2017-10-18] MEDS ORDERED: Pneumococcal 23-Valent Vaccine IM ONE (10:00)
[2017-10-18 10:03] LABS: HDL CHOLESTEROL 49 MG/DL (30-70)
[2017-10-18 10:20] LABS: T4 5.23 ug/dl (5.5-11.0)
[2017-10-18 10:30] LABS: LDL CHOLESTEROL < 30 mg/dL (0-129)
--- NOTE | 2017-10-18 11:17 | PCM.PSYCH ---
Initial Psychiatric Evaluation - Initial Psychiatric Evaluation Type of Admission: Voluntary Legal Status: Capacity Chief Complaint (in patient's own words): I started hearing voices telling me to hurt myself Patient's Reaction to Hospitalization: pt requested help History of Present Illness and Precipitating Events: pt is 47 ys old female with previous psychiatric diagnosis of schizoaffective disorder, opiate dependence since age 14, recently discharged from [facility], non compliant with medications, became increasingly depressed, relapsed on heroin using about two bags daily, on day of evaluation pt started experiencing command auditory hallucinations, also started having suicidal ideation with plan to cut her wrist came to ER seeking help On the unit pt reported mood swings, depression, feeling hopeless and helpless, non command auditory hallucinations and passive suicidal ideation without active plan or intent on the unit , poor sleep and poor appetite pt reported using two bags of heroin two days prior to admission, denied other substance use Current Medications: Active Medications Generic Name Dose Route Start Last Admin Trade Name Freq PRN Reason Stop Dose Admin Acetaminophen 650 mg 10/18/17 05:40 Tylenol 325mg Tab PO Q4 PRN pain level 4-7 Al Hydrox/Mg Hydrox/Simethicone 30 ml 10/18/17 05:40 Maalox Plus 30 Ml PO Q4 PRN Dyspepsia Clonidine HCl 0.1 mg 10/18/17 09:00 Catapres PO 10/21/17 09:01 Q8 ANISA Diphenhydramine HCl 50 mg 10/18/17 05:40 Benadryl IM Q6 PRN Extrapyramidal S/S Unable PO Diphenhydramine HCl 50 mg 10/18/17 05:40 Benadryl PO Q6 PRN Extrapyramidal Symptoms Diphenhydramine HCl 50 mg 10/18/17 05:42 Benadryl PO HS PRN Sleep Gabapentin 100 mg 10/18/17 13:00 Neurontin PO TID ANISA Haloperidol 5 mg 10/18/17 05:40 Haldol PO Q4 PRN Agitation Haloperidol Lactate 5 mg 10/18/17 05:40 Haldol IM Q4 PRN Agitation, Unable to Take PO Hydroxyzine Pamoate 50 mg 10/18/17 11:02 Vistaril PO Q8 PRN Anxiety Ibuprofen 400 mg 10/18/17 06:00 Motrin Tab PO 10/21/17 06:03 Q6 PRN Pain, severe (8-10) Loperamide HCl 2 mg 10/18/17 06:00 Imodium PO Q4 PRN After Loose Bowel Movement Magnesium Hydroxide 30 ml 10/18/17 05:40 Milk Of Magnesia PO HS PRN Constipation Multivitamins/Minerals 1 tab 10/18/17 09:00 Therapeutic-M Tab PO DAILY ANISA Quetiapine Fumarate 200 mg 10/18/17 22:00 Seroquel PO HS ANISA Past Psychiatric History - Past Psychiatric History Previous Treatment History: Inpatient Explanation of prior treatment: multiple inpatient hospitalizations, history of non compliance with treatment History of ETOH/Drug Use: polysubstance use , opiate use started at age 14 Pertinent Medical Hx (Current Medical&Sleep Prob, Allergies): Allergies Allergy/AdvReac Type Severity Reaction Status Date / Time Penicillins AdvReac RASH Verified 10/13/17 04:37 Gabapentin [Neurontin] 300 mg PO TID #45 cap 10/17/17 Quetiapine Fumarate [Seroquel] 300 mg PO AMHS #30 tablet 10/17/17 Haloperidol [Haldol] PO 10/18/17 Zolpidem [Ambien] 10 mg PO HS PRN 10/18/17 clonazePAM [clonAZEPAM] 1 mg PO BID 10/18/17 traZODone [Desyrel] 150 mg PO HS 10/18/17 Mental Status Examination - Personal Presentation Personal Presentation: Looks older than stated age Additional comments: disheveled , unkempt - Affect Affect: Constricted - Motor Activity Motor Activity: Psychomotor Retardation - Reliability in Providing Information Reliability in Providing Information: Poor, due to altered mood - Speech Speech: Relevant - Mood Mood: Depressed - Formal Thought Process Formal Thought Process: Hallucinations, Circumstantial Additional comments: pt reported non command auditory hallucinations - Hallucinations/Delusions Hallucinations: Auditory - Obsessions/Compulsions Obsessions: No Compulsions: No - Cognitive Functions Orientation: Person, Place, Situation Sensorium: Alert Attention/Concentration: Attentive Abstract Thinking: [place] Judgement: Imparied, as evidence by: Poor judgement, Imparied, as evidence by: Lack of insight into illness - Risk Risk: Suicidal, Withdrawal, Diminished functioning - Strength & Assets Inventory Strength & Assets Inventory: Life experience - Limitations Additional comments: poor compliance with treatment DSM 5 DX - DSM 5 DSM 5 Diagnosis: substance induced mood disorder with depressive features opiate use disorder hx of schizoaffective disorder - Recommended/Plan of Treatment Treatment Recommendations and Plan of Treatment: start clonidine protocol/ monitor pt for symptoms and signs of opiate withdrawal start neurontin 100 mg tid start seroquel 200mg qhs up titrate gradually Motivational therapy/ discuss maintenance treatment to avoid relapse group and supportive therapy Internal medicine consult disposition planning Projected ELOS: 7 days Prognosis: guarded Discharge Plan and Discharge Criteria: pt no longer has suicidal ideation
[2017-10-18] MEDS: Multivitamin With Minerals Tab PO SCH (12:06)
[2017-10-19] MEDS: Multivitamin With Minerals Tab PO SCH (08:58)
--- NOTE | 2017-10-19 16:04 | PCM.PYCHPN ---
Psychiatric Progress Note - Psychiatric Progress Note Patient seen today, length of contact: chart reviewed case discussed with team Patient Chief Complaint: was feeling depressed starting to feel a little better Problems Identified/Issues Discussed: per psychiatry per medicine per nursing per social work per recreational therapy Medical Problems: per chart Diagnostic Results: per chart DSM 5 Symptoms Update: mood somewhat improving staff report somewhat irritable at times although appears to somewhat less Medication Change: No Medical Record Reviewed: Yes Consults ordered or reviewed: pt seen by hospitalist Mental Status Examination - Cognitive Function Orientation: Person, Place, Situation Attention: WNL Concentration: WNL Association: WNL Fund of Knowledge: WN Decription of patient's judgement and insights: impaired - Mood Mood: Depressed - Affect Affect: Constricted - Speech Additional comments: loud at times - Formal Thought Process Formal Thought Process: Circumstantial - Homicidal Ideation Homicidal Ideation: No Goal/Treatment Plan - Goal/Treatment Plan Need for Continued Stay: Remain at risks for inpatient hospitalization Progress Toward Problem(s) and Goals/Treatment Plan: inpt milieu adjust meds per clinical status discharge planning in progress Estimated Date of D/C: 10/23/17 - Smoking Cessation Smoking Cessation Initiated: No Reason for not providing: pt defers
--- NOTE | 2017-10-20 07:40 | CON ---
Copied To: Stephanie Garcia MD Attending MD: Stephanie Garcia MD DATE: 10/19/2017 HISTORY OF PRESENT ILLNESS: This is a 47-year-old female with history of multiple medical problems, including multiple drug abuse, EtOH, and substance abuse. The patient denied to have any other symptoms during this examination. ALLERGY: POSITIVE FOR PENICILLIN. MEDICATIONS: Reviewed as per MAR. PAST MEDICAL HISTORY: As above. SOCIAL HISTORY: Positive multiple drug abuse and smoker and positive EtOH abuse. FAMILY HISTORY: Not contributory. PHYSICAL EXAMINATION: GENERAL: The patient is in bed, comfortable, not in any cardiopulmonary distress. VITAL SIGNS: Blood pressure 102/57, temperature 98.1, respiratory rate 18, and pulse 70. HEENT: Pupils equal and reactive to light. Normal-appearing mucosa of the conjunctivae, oropharynx, and nasal membrane mucosa. NECK: Supple. No carotid bruit. No lymph node. No thyromegaly. CHEST AND LUNGS: Bilateral symmetrical expansion. CARDIOVASCULAR SYSTEM: PMI not localized. S1, S2. No additional sounds. ABDOMEN: Normoactive bowel sounds. No tenderness. No organomegaly. No masses. EXTREMITIES: No cyanosis, no clubbing, no edema. 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 No neurological deficit could be appreciated. ASSESSMENT: 1. Multiple drug abuse. 2. Smoker. 3. Osteoarthritis. PLAN: Check blood work and continue current medications. We will follow up with you. Stephanie Garcia MD
[2017-10-20] MEDS: Multivitamin With Minerals Tab PO SCH (08:51)
[2017-10-20] MEDS: guaiFENesin DM 100 mg-10 mg/5 ml UD PO SCH ×2 (12:57→17:00)
--- NOTE | 2017-10-20 19:22 | PCM.PYCHPN ---
Psychiatric Progress Note - Psychiatric Progress Note Patient seen today, length of contact: chart reviewed case discussed with team Patient Chief Complaint: was feeling depressed starting to feel a little better, staff report pt somewhat less irritable Problems Identified/Issues Discussed: alteration in mood coping psychosis appears to be improving Medical Problems: per chart Diagnostic Results: per chart DSM 5 Symptoms Update: lessening depressed lessening psychosis somewhat lessened irritability mood Medication Change: No Medical Record Reviewed: Yes Consults ordered or reviewed: pt seen by hospitalist Mental Status Examination - Cognitive Function Orientation: Person, Place, Situation Attention: WNL Concentration: WNL Association: WNL Fund of Knowledge: [facility] Decription of patient's judgement and insights: impaired - Mood Mood: Depressed - Affect Affect: Constricted - Formal Thought Process Formal Thought Process: Circumstantial - Homicidal Ideation Homicidal Ideation: No Goal/Treatment Plan - Goal/Treatment Plan Need for Continued Stay: Remain at risks for inpatient hospitalization Progress Toward Problem(s) and Goals/Treatment Plan: inpt milieu adjust meds per clinical status repeat cbc/diff previously elevated repeat t4 previously decreased discharge planning in progress Estimated Date of D/C: 10/23/17 - Smoking Cessation Smoking Cessation Initiated: No Reason for not providing: pt defers
[2017-10-21] MEDS: Multivitamin With Minerals Tab PO SCH (08:03)
[2017-10-21] MEDS: guaiFENesin DM 100 mg-10 mg/5 ml UD PO SCH ×3 (08:03→21:05)
--- NOTE | 2017-10-21 09:44 | PCM.PYCHPN ---
Psychiatric Progress Note - Psychiatric Progress Note Patient seen today, length of contact: chart reviewed case discussed with team Patient Chief Complaint: pt has been doing well on meds and denies hallucinations and denies seeing shadows. no side effects. Medication Change: No Medical Record Reviewed: Yes Mental Status Examination - Cognitive Function Orientation: Person, Place, Situation Attention: WNL Concentration: WNL Association: WNL Fund of Knowledge: WNL - Mood Mood: Depressed - Affect Affect: Constricted - Formal Thought Process Formal Thought Process: Circumstantial - Homicidal Ideation Homicidal Ideation: No Goal/Treatment Plan - Goal/Treatment Plan Need for Continued Stay: Remain at risks for inpatient hospitalization Progress Toward Problem(s) and Goals/Treatment Plan: continue the current meds and engage pt in therapy and groups. Disposition as per treatment team. Estimated Date of D/C: 10/23/17
[2017-10-22 07:47] LABS: BASO # 0.1 K/uL (0.0-0.2); EOS # 0.3 K/uL (0.0-0.7); EOS % 3.9 % (0.0-4.0); LYMPH # 2.9 K/uL (1.0-4.3); LYMPH % 35.4 % (20.0-40.0); MEAN CELL VOLUME 89.7 fl (81.0-99.0); MEAN CORPUSCULAR HEMOGLOBIN 30.2 pg (27.0-31.0); MEAN CORPUSCULAR HGB CONC 33.7 g/dL (33.0-37.0); MEAN PLATELET VOLUME 9.1 fl (7.2-11.7); MONO % 12.6 % (0.0-10.0); NEUT # 3.8 K/uL (1.8-7.0); NEUT % 47.1 % (50.0-75.0); NRBC % 0.2 % (0.0-0.0); RBC 4.65 Mil/uL (3.80-5.20); RED CELL DISTRIBUTION WIDTH 15.5 % (11.5-14.5); WHITE BLOOD COUNT 8.1 K/uL (4.8-10.8)
[2017-10-22] MEDS: guaiFENesin DM 100 mg-10 mg/5 ml UD PO SCH ×3 (08:46→21:08)
[2017-10-22] MEDS: Multivitamin With Minerals Tab PO SCH (08:46)
[2017-10-22 09:35] VITALS: TEMP 98.1
[2017-10-23] MEDS: guaiFENesin DM 100 mg-10 mg/5 ml UD PO SCH (08:37)
[2017-10-23] MEDS: Multivitamin With Minerals Tab PO SCH (08:37)
[2017-10-23 09:04] VITALS: BP 105/71; PULSE 71; RESP 17
--- NOTE | 2017-10-23 12:51 | PCM.PYCHDC ---
Mental Status Examination - Mental Status Examination Orientation: Person, Place, Situation Memory: Intact Mood: Neutral Affect: Broad Speech: Appropriate Attention: WNL Concentration: WNL Association: WNL Fund of Knowledge: WNL Formal Thought Process: No Impairment Description of patient's judgement and insight: partil insight poor judgment Psychotic Thoughts and Behaviors: pt denied perceptual disturbances, non elicited Suicidal Ideation: No Current Homicidal Ideation?: No Discharge Summary - Discharge Note Reason for Hospitalization: pt is 47 ys old female with previous psychiatric diagnosis of schizoaffective disorder, opiate dependence since age 14, recently discharged from [facility], non compliant with medications, became increasingly depressed, relapsed on heroin using about two bags daily, on day of evaluation pt started experiencing command auditory hallucinations, also started having suicidal ideation with plan to cut her wrist came to ER seeking help On the unit pt reported mood swings, depression, feeling hopeless and helpless, non command auditory hallucinations and passive suicidal ideation without active plan or intent on the unit , poor sleep and poor appetite pt reported using two bags of heroin two days prior to admission, denied other substance use Consultations:: List each consultation separately and include: 1. Reason for request. 2. Findings. 3. Follow-up Summary of Hospital Course include:: 1. Description of specific treatment plan utilized for patients during their course of treatmen. 2. Summarize the time- course for resolution of acute symptoms and/or regressed behaviors. 3. Describe issues identified and worked on during hospitalization. 4. Describe medication utilized. 5. Describe medical problems identified and treated. 6. Reassessment of suicide risk Summary of Hospital Course: pt on admission was started on clonidine protocol for opiate withdrawal, seroquel was started for mood stabilization neurontin for anxiety motivational therapy was provided for opiate use , pt was advised about starting maintenance treatment to avoid relapse, pt was also advised on discharge about the risk of relapse and possible overdose on discharge mental status was stable pt denied any current suicidal or homicidal ideation denied perceptual disturbances follow up arranged by social worker assistant [place] [facility] [place] - Diagnosis (1) Heroin abuse Current Visit: No Status: Acute - Final Diagnosis (DSM 5) Condition upon Discharge: FAIR DSM 5: substance in duced mood disorder with depressive features opiate use disorder bipolar disorder Disposition: HOME/ ROUTINE Follow-up Treatment Plan: start clonidine protocol/ monitor pt for symptoms and signs of opiate withdrawal start neurontin 100 mg tid start seroquel 200mg qhs up titrate gradually Motivational therapy/ discuss maintenance treatment to avoid relapse group and supportive therapy Internal medicine consult disposition planning Prescriptions/Medication Reconciliation: Gabapentin [Neurontin] 100 mg PO TID 30 Days #90 cap QUEtiapine [SEROquel] 200 mg PO HS 30 Days #30 tab - Smoking Cessation Smoking Cessation Medication prescribed: No - Antipsychotic Medications Pt discharged on 2 or more routine antipsychotic medications: No
== END 2017-10-23 14:41 | disposition home or self-care (01) | DRG 744 ==
LOC: H.ER 01:42 → H.ERHOLD 03:02 → H.PSYCH 05:38
PROVIDERS: ADMIT Psychiatry & Neurology Psychiatry; ATTEND Psychiatry & Neurology Psychiatry
PROC: HZ31ZZZ Individual Counseling for Substance Abuse Treatment, Behavioral (ICD-10-PCS; principal; 2017-10-18)
PROC: GZHZZZZ Group Psychotherapy (ICD-10-PCS; 2017-10-18)
PROC: GZ51ZZZ Individual Psychotherapy, Behavioral (ICD-10-PCS; 2017-10-18)
DX: F11.14 Opioid abuse with opioid-induced mood disorder (principal); F25.9 Schizoaffective disorder, unspecified; F11.20 Opioid dependence, uncomplicated; F17.200 Nicotine dependence, unspecified, uncomplicated; F31.9 Bipolar disorder, unspecified; F41.9 Anxiety disorder, unspecified; I10 Essential (primary) hypertension; J45.909 Unspecified asthma, uncomplicated; M19.90 Unspecified osteoarthritis, unspecified site; R45.851 Suicidal ideations; Z91.19 Patient's noncompliance with other medical treatment and regimen; D64.9 Anemia, unspecified; Z79.899 Other long term (current) drug therapy; F10.10 Alcohol abuse, uncomplicated

== ENCOUNTER 2018-02-21 21:06 | Inpatient (IN) | payer MEDICAID ==
[2018-02-21 21:07] VITALS: BMI 25.0
--- NOTE | 2018-02-21 22:06 | ED PDOC ---
HPI: Psych/Substance Abuse Time Seen by Provider: 02/21/18 21:30 Chief Complaint (Nursing): Psychiatric Evaluation History Per: Patient Additional Complaint(s): Pt. states for the past 2 days she's had worsening depression. States she's had thoughts about wanting to cut herself but has not cut herself. Also reports having visual hallucinations. Reports "seeing shadows." Denies HI. Past Medical History Reviewed: Historical Data, Nursing Documentation, Vital Signs Vital Signs: Last Vital Signs Temp 98.4 F 02/21/18 21:23 Pulse 71 02/21/18 21:23 Resp 16 02/21/18 21:23 BP 122/79 02/21/18 21:23 Pulse Ox 97 02/21/18 21:23 - Medical History PMH: Anemia, Anxiety, Asthma, Bipolar Disorder, Depression, Schizophrenia Denies: Arthritis, Crohn's Disease, Diabetes, Diverticulitis, Fractures, Gastritis, Gall Bladder Disease, Hepatitis, HIV, Hyperthyroidism, Hypothyroidism, Kidney Stones, Osteoporosis, Pancreatitis, Chronic Kidney Disease, Rheumatoid Arthritis, Seizures, Sexually Transmitted Disease - Surgical History Surgical History: Cholecystectomy - Family History Family History: States: No Known Family Hx - Immunization History Hx Tetanus Toxoid Vaccination: No Hx Influenza Vaccination: Yes Hx Pneumococcal Vaccination: No - Home Medications Home Medications: Ambulatory Orders Medication Instructions Recorded traZODone [Desyrel] 300 mg PO HS 10/18/17 Haloperidol [Haldol] 0.5 mg PO DAILY 02/21/18 Naproxen [Naprosyn] 500 mg PO PRN PRN 02/21/18 QUEtiapine [SEROquel] 300 mg PO HS 02/21/18 Zolpidem [Ambien] 10 mg PO HS 02/21/18 - Allergies Allergies/Adverse Reactions: Allergies Allergy/AdvReac Type Severity Reaction Status Date / Time Penicillins Allergy unknown Verified 02/21/18 21:19 Review of Systems ROS Statement: Except As Marked, All Systems Reviewed And Found Negative Psych: Positive for: Depression Physical Exam - Reviewed Nursing Documentation Reviewed: Yes Vital Signs Reviewed: Yes - Physical Exam Appears: Positive for: Well, Non-toxic, No Acute Distress Head Exam: Positive for: ATRAUMATIC, NORMAL INSPECTION, NORMOCEPHALIC Skin: Positive for: Normal Color, Warm. Negative for: Rash Eye Exam: Positive for: EOMI, Normal appearance, PERRL ENT: Positive for: Normal ENT Inspection Neck: Positive for: Normal, Painless ROM Cardiovascular/Chest: Positive for: Regular Rate, Rhythm Respiratory: Positive for: CNT, Normal Breath Sounds Gastrointestinal/Abdominal: Positive for: Normal Exam, Soft. Negative for: T enderness Back: Positive for: Normal Inspection Extremity: Positive for: Normal ROM Neurologic/Psych: Positive for: Alert, Oriented (x3), Mood/Affect (calm, cooperative) - Laboratory Results Result Diagrams: 02/21/18 22:30 02/21/18 22:30 - ECG ECG: Positive for: Interpreted By Me ECG Rhythm: Positive for: Sinus Rhythm. Negative for: ST/T Changes Rate: 60 O2 Sat by Pulse Oximetry: 97 - Radiology X-Ray: Interpreted by Me (CXR) X-Ray Interpretation: No Acute Disease - Progress ED Course And Treament: Pt evaluated by Stephanie AVILEZ who spoke with Dr. Olson and requests that pt. be admitted. Labs, EKG ordered. Disposition - Clinical Impression Clinical Impression: Schizoaffective disorder - Patient ED Disposition Is Patient to be Admitted: Yes - Disposition Disposition Time: 22:00 Condition: FAIR Forms: Appsembler (Bur[place]ian)
[2018-02-21 22:20] LABS: SQUAMOUS EPITHIAL 5 /hpf (0-5); URINE BACTERIA OCC (<OCC); URINE BILIRUBIN NEGATIVE (NEGATIVE); URINE BLOOD SMALL (NEGATIVE); URINE CLARITY CLOUDY (Clear); URINE COLOR YELLOW (YELLOW); URINE GLUCOSE (UA) NEG (NEGATIVE); URINE LEUKOCYTE ESTERASE NEG Leu/uL (Negative); URINE PROTEIN 30 mg/dL (NEGATIVE)
[2018-02-21 22:41] LABS: BARBITURATES, UR NEGATIVE (NEGATIVE); BENZODIAZEPINES, UR POSITIVE (NEGATIVE); OPIATES, UR POSITIVE (NEGATIVE); PHENCYCLIDINE, UR NEGATIVE (NEGATIVE)
[2018-02-21 22:50] LABS: BASO % 0.5 % (0.0-2.0); EOS # 0.3 K/uL (0.0-0.7); EOS % 3.3 % (0.0-4.0); LYMPH # 2.7 K/uL (1.0-4.3); LYMPH % 34.9 % (20.0-40.0); MEAN CELL VOLUME 90.7 fl (81.0-99.0); MEAN CORPUSCULAR HEMOGLOBIN 29.7 pg (27.0-31.0); MEAN CORPUSCULAR HGB CONC 32.8 g/dL (33.0-37.0); MEAN PLATELET VOLUME 9.4 fl (7.2-11.7); MONO # 0.7 K/uL (0.0-0.8); NEUT % 52.3 % (50.0-75.0); NRBC % 0.2 % (0.0-0.0); RBC 4.37 Mil/uL (3.80-5.20); RED CELL DISTRIBUTION WIDTH 16.5 % (11.5-14.5); WHITE BLOOD COUNT 7.7 K/uL (4.8-10.8)
[2018-02-21 22:56] LABS: ALB/GLOB RATIO 1.2 (1.0-2.1); ALBUMIN 4.3 g/dL (3.5-5.0); ALT/SGPT 29 U/L (9-52); AST/SGOT 27 U/L (14-36); BLOOD UREA NITROGEN 16 mg/dl (7-17); CALCIUM 9.3 mg/dL (8.4-10.2); GFR NON-AFRICAN AMERICAN 59
[2018-02-22] MEDS ORDERED: DiphenhydrAMINE 50 mg/ml Inj IM PRN (00:31)
[2018-02-22] MEDS ORDERED: Magnesium Hydroxide Susp 30 ml UD PO PRN (00:31)
[2018-02-22] MEDS ORDERED: Alum-Mag Hydrox-Simethicone Susp (30 mL) PO PRN (00:31)
--- NOTE | 2018-02-22 01:24 | PCM.BM ---
<Le Elizabeth - Last Filed: 02/22/18 01:22> Treatment Plan Problems - Problems identified on initial assessmt Hopelessness/Helplessness Date Initiated: 02/22/18 Time Initiated: :23 Assessment reference: NA Status: Active Social Isolation Date Initiated: 02/22/18 Time Initiated: 01:23 Assessment reference: NA Status: Active Altered Sleep Patterns Date Initiated: 02/22/18 Time Initiated: 01:24 Assessment reference: NA Status: Active Treatment assets and liabiliti Patient Assests: adapts well, cooperative, resourceful, self-reliant, ADL independent, physically healthy, negotiates basic needs, cognitively intact Patient Liabilities: live alone, financial problems, poor support system, substance abuse - Milieu Protocol Maintain good personal hygiene: daily Encourage regular showers, other Remind patient to perform daily oral care (prn), other Assist patient to perform ADL's (prn) Conduct patient checks and document Observation sheet: Q15 minutes Maintain personal safety: every shift Educate patient to report safety concerns to staff, every shift Monitor environment for contraband/sharps Medication safety: Monitor for expected outcome, potential side effects: every shift, Assess barriers to learning: every shift, Assess readiness for medication education: every shift <Macey Fairchild - Last Filed: 02/22/18 14:51> Treatment assets and liabiliti Patient Assests: adapts well, cooperative, resourceful, self-reliant, ADL independent, physically healthy, negotiates basic needs, cognitively intact Patient Liabilities: live alone (Pt. reports chronic homelessness), poor support system (Pt. reports having no family/social supports since fathers 1 year ago. ), substance abuse (Pt. reports significant hx of polysubstance abuse (ETOH, Heroin, Cocaine, Xanax, and Cannabis) since age 14 with multiple periods of sobriety. Pt. reports hx of detox and inpatient substance abuse treatment but could not provide field underwriter with names of facilities/dates of tx. Pt. reports maintaining sobriety since admission in 09/2017 but relapsing on heroin 2 days ago.), legal issue (Pt. reports hx of arrests/incarceration for possession but denies outstanding legal issues. ) Family Contact Family involvement: No known Family/SO Family contact: Patient declines to allow family contact at present - Goals for Treatment Patient goals for treatment: Patient to continue stabilization on 3NP through medication management and group/supportive therapy to address sxs of depression and eliminate SI/VH. Patient to be encouraged to attend groups regularly to promote self-awareness, sobriety, and improve insight, compliance, coping skills and self-esteem. Patient to be provided with referral for appropriate level of aftercare to reduce risk of future hospitalizations and ensure safety in the community. Pt. identifies "feeling better" and having AH. go away" as treatment goals. Discharge/Continuing Care - Education Needs Education Needs: Patient Medication, Patient Diagnosis/Disease Process, Patient Coping Skills, Patient Anger Management skills, Patient Community resources, Patient Personal Hygiene/Grooming, Patient Aftercare Safety Plan - Discharge Discharge Criteria: Tolerates medication w/o severe side effects, Free of Suicidal thoughts, Free of agitation, No longer exhibiting s/s of withdrawal, Reduction of target symptoms (vh) Discharge to:: Senior Living, Other ([facility] vs. Inpatient Rehab) <Yuriy Bazzi - Last Filed: 02/23/18 14:43> Family Contact Family contact name: Pt refused. Discharge/Continuing Care - Treatment Team Participation Patient/Family/SO Statement: 02/23/18 14:47 Pt seen in team on 02/23/18. Pt reported she was tired because it was difficult to fall asleep. Pt requested an increase in her Seroquel and addition of Tr azodone. Pt also complained of the noise from the work being done to the unit and the temperature of the unit. Pt reported referrals to [facility] for Suboxone replacement therapy. Pt also reported that she has an open case with [facility] and would follow-up post discharge. Pt denied Si/HI and AVT hallucinations. Discussed with Family/SO: No Was Patient/Family/SO present at Treatment Team Meeting: Yes <Betzy Olson - Last Filed: 02/26/18 09:29> - Diagnosis (1) Substance induced mood disorder Status: Chronic Interventions: motivational therapy 02/26/18 09:29
[2018-02-22 08:11] LABS: T4 5.82 ug/dl (5.5-11.0)
--- NOTE | 2018-02-22 08:31 | RAD ---
Date of service: 02/21/2018 HISTORY: clearance COMPARISON: 10/18/2017. FINDINGS: LUNGS: The lungs are well inflated and clear. PLEURA: No pleural effusions or pneumothorax. CARDIOVASCULAR: The heart is normal in size. No aortic atherosclerotic calcification present. OSSEOUS STRUCTURES: Within normal limits for the patient's age. VISUALIZED UPPER ABDOMEN: Normal. OTHER FINDINGS: None. IMPRESSION: No active pulmonary disease.
[2018-02-22] MEDS ORDERED: Influenza Vaccine (5 YR UP)/PF 60 MCG/0.5 ML SYR IM ONE (09:00)
--- NOTE | 2018-02-22 14:36 | PCM.PSYCH ---
Initial Psychiatric Evaluation - Initial Psychiatric Evaluation Type of Admission: Voluntary Legal Status: Capacity Chief Complaint (in patient's own words): I relapsed because of the holidays History of Present Illness and Precipitating Events: pt is 47ys old female with previous diagnosis of bipolar disorder. opiate dependence and cocaine abuse , presented to ER having suicidal ideation pt recently discharged from [facility] non compliant with medications or follow up, became increasingly depressed because of the holidays , relapsed on opiates and cocaine, started experiencing auditory hallucinations and suicidal ideation, came to ER seeking help On evaluation patient reported low energy, feeling hopeless and helpless non command auditory hallucinations and passive suicidal ideation Current Medications: Active Medications Generic Name Dose Route Start Last Admin Trade Name Freq PRN Reason Stop Dose Admin Acetaminophen 650 mg 02/22/18 00:49 Tylenol 325mg Tab PO Q4 PRN pain 1-7 Al Hydrox/Mg Hydrox/Simethicone 30 ml 02/22/18 00:31 Maalox Plus 30 Ml PO Q4 PRN Dyspepsia Clonidine HCl 0.1 mg 02/22/18 01:00 02/22/18 09:23 Catapres PO 02/25/18 01:01 Not Given Q8 ANISA Diphenhydramine HCl 50 mg 02/22/18 00:31 Benadryl IM Q6 PRN Extrapyramidal S/S Unable PO Diphenhydramine HCl 50 mg 02/22/18 00:31 Benadryl PO Q6 PRN Extrapyramidal Symptoms Gabapentin 100 mg 02/22/18 17:00 Neurontin PO TID ANISA Haloperidol 5 mg 02/22/18 00:31 Haldol PO Q4 PRN Agitation Haloperidol Lactate 5 mg 02/22/18 00:31 Haldol IM Q4 PRN Agitation, Unable to Take PO Ibuprofen 800 mg 02/22/18 00:49 Motrin Tab PO Q8 PRN pain 8-10 Loperamide HCl 2 mg 02/22/18 00:36 Imodium PO Q4 PRN After Loose Bowel Movement Lorazepam 2 mg 02/22/18 00:31 Ativan IM Q6 PRN Anxiety/Agitation,Unable PO Lorazepam 1 mg 02/22/18 00:31 Ativan PO Q8 PRN Anxiety/Agitation Magnesium Hydroxide 30 ml 02/22/18 00:31 Milk Of Magnesia PO HS PRN Constipation Quetiapine Fumarate 200 mg 02/22/18 22:00 Seroquel PO HS [facility] Past Psychiatric History - Past Psychiatric History Explanation of prior treatment: pt has multiple psychiatric hospitalizations, hx of non compliance with treatment History of ETOH/Drug Use: hx of cocaine and opiate use Pertinent Medical Hx (Current Medical&Sleep Prob, Allergies): Allergies Allergy/AdvReac Type Severity Reaction Status Date / Time Penicillins Allergy unknown Verified 02/21/18 21:19 traZODone [Desyrel] 300 mg PO HS 10/18/17 Haloperidol [Haldol] 0.5 mg PO DAILY 02/21/18 Naproxen [Naprosyn] 500 mg PO PRN PRN 02/21/18 QUEtiapine [SEROquel] 300 mg PO HS 02/21/18 Zolpidem [Ambien] 10 mg PO HS 02/21/18 Mental Status Examination - Personal Presentation Personal Presentation: Looks stated age - Affect Affect: Constricted, Depressed - Motor Activity Motor Activity: Psychomotor Retardation - Reliability in Providing Information Reliability in Providing Information: Poor, due to altered mood - Speech Speech: Relevant - Mood Mood: Depressed, Anxious - Formal Thought Process Formal Thought Process: Hallucinations, Circumstantial - Hallucinations/Delusions Hallucinations: Auditory - Obsessions/Compulsions Obsessions: No Compulsions: No - Cognitive Functions Orientation: Person Sensorium: Alert Abstract Thinking: [place] Judgement: Imparied, as evidence by: Poor judgement, Imparied, as evidence by: Lack of insight into illness - Risk Risk: Suicidal, Withdrawal, Diminished functioning - Strength & Assets Inventory Strength & Assets Inventory: Life experience - Limitations Additional comments: poor compliance DSM 5 DX - DSM 5 DSM 5 Diagnosis: substance induced mood disorder opiate use disorder cocaine abuse bipolar disorder - Recommended/Plan of Treatment Treatment Recommendations and Plan of Treatment: start pt on clonidine protocol and monitor pt for symptoms and signs of opiate withdrawal seroquel 200mg qhs , for AH, depression and mood stabilization motivational, group and supportive therapy
--- NOTE | 2018-02-22 18:08 | CARD ---
APPROVED REPORT Date of service: 02/21/2018 EKG Measurement Heart [id number] <Conclusion> Normal sinus rhythm Normal ECG
--- NOTE | 2018-02-23 13:21 | PCM.PYCHPN ---
Psychiatric Progress Note - Psychiatric Progress Note Patient seen today, length of contact: pt evaluated discussed with team chart reviewed Patient Chief Complaint: I had a hard time to sleep Problems Identified/Issues Discussed: pt evaluated with treatment team continues to be depressed, feeling tired because of opiate withdrawal, motivational therapy provided, discussed with patient effect of opiate use on current mental status also discussed referral to pat prater treatment on discharge to avoid relapse pt complained of poor sleep, discussed adding trazodone, encouraged patient to attend groups pt denied current thoughts of self harm denied command hallucinations Medical Problems: pt has multiple psychiatric hospitalizations, hx of non compliance with treatment DSM 5 Symptoms Update: bipolar disorder opiate dependence cocaine dependence Medication Change: Yes (increase seroquel/ add trazodone) Medical Record Reviewed: Yes Mental Status Examination - Cognitive Function Orientation: Person, Place, Situation Attention: WNL Concentration: WNL Association: WNL - Mood Mood: Depressed, Anxious - Affect Affect: Constricted, Depressed - Formal Thought Process Formal Thought Process: Hallucinations, Circumstantial - Suicidal Ideation Suicidal Ideation: No - Homicidal Ideation Homicidal Ideation: No Goal/Treatment Plan - Goal/Treatment Plan Need for Continued Stay: Severe depression anxiety, Discharge may exacerbated symptoms Progress Toward Problem(s) and Goals/Treatment Plan: continue clonidine protocol and monitor pt for symptoms and signs of opiate withdrawal increase seroquel 200mg qhs , for AH, depression and mood stabilization increase neurontin 200mg tid start trazodone 200mg qhs motivational, group and supportive therapy
[2018-02-23] MEDS: QUEtiapine 300 MG TABLET PO SCH (21:01)
[2018-02-24] MEDS: Naproxen 500 MG TAB PO SCH ×2 (10:13→21:08)
--- NOTE | 2018-02-24 11:43 | PCM.PYCHPN ---
Psychiatric Progress Note - Psychiatric Progress Note Patient seen today, length of contact: pt evaluated discussed with team chart reviewed Patient Chief Complaint: I still have trouble sleeping Problems Identified/Issues Discussed: pt evaluated reported continues to feel depressed due to withdrawal symptoms, reported early insomnia , discussed increasing trazodone pt denied current thoughts of self harm denied command hallucinations Medical Problems: pt has multiple psychiatric hospitalizations, hx of non compliance with treatment Medication Change: Yes (increase seroquel/ add trazodone) Medical Record Reviewed: Yes Mental Status Examination - Cognitive Function Orientation: Person, Place, Situation Attention: WNL Concentration: WNL Association: WNL - Mood Mood: Depressed, Anxious - Affect Affect: Constricted, Depressed - Formal Thought Process Formal Thought Process: Hallucinations, Circumstantial - Suicidal Ideation Suicidal Ideation: No - Homicidal Ideation Homicidal Ideation: No Goal/Treatment Plan - Goal/Treatment Plan Need for Continued Stay: Severe depression anxiety, Discharge may exacerbated symptoms Progress Toward Problem(s) and Goals/Treatment Plan: continue clonidine protocol and monitor pt for symptoms and signs of opiate withdrawal increase seroquel 300mg qhs , for AH, depression and mood stabilization neurontin 200mg tid increase trazodone 300mg qhs motivational, group and supportive therapy
--- NOTE | 2018-02-24 19:13 | CON ---
DATE: 02/24/2018 This is a late entry for initial consultation done on 02/23/2018. HISTORY OF PRESENT ILLNESS: The patient was seen in psychiatry floor. She is a 47-year-old female with history of multiple substance abuse and osteoarthritis. The patient had many left knee injections. The patient is complaining of right knee pain going up or down the stairs. The patient denied having any recent trauma. There is no symptoms of fever or redness or swelling of the knee either. The patient denied also that she has any symptoms suggestive of heroin withdrawal. No chest pain. No shortness of breath. No vomiting. No diarrhea. REVIEW OF SYSTEMS: Other review of systems are negative. ALLERGIES: THE PATIENT HAS ALLERGY TO PENICILLIN. MEDICATIONS: Reviewed as per MAR. SOCIAL HISTORY: Positive for smoking, social alcohol drinker, and positive substance abuse, mainly heroin. FAMILY HISTORY: Noncontributory. PHYSICAL EXAMINATION: GENERAL: The patient is in bed, not in any cardiopulmonary distress. VITAL SIGNS: Blood pressure 119/60, temperature 98.1, respiratory rate 20, and pulse 67. HEENT: Pupils equal, reactive to light. Normal-appearing mucosa of the conjunctivae, oropharynx, and nasal membrane mucosa. NECK: Supple. No JVD. No carotid bruit. No lymph node. No thyromegaly. CHEST AND LUNGS: Bilateral symmetrical expansion. Good air exchange. No rales. No rhonchi. CARDIOVASCULAR SYSTEM: PMI not localized. S1, S2. No additional sounds. ABDOMEN: Normoactive bowel sounds. No tenderness. No organomegaly. No masses. EXTREMITIES: There are crepitations of the right knee and the left knee, but there is no limitation of the range of movement. CENTRAL NERVOUS SYSTEM: Alert, awake, oriented x2. No neurological deficits could be appreciated. ASSESSMENT: 1. Osteoarthritis of both knees, left more than right. 2. History of multiple drug abuse. Currently, there are no withdrawal symptoms. 3. Multiple drug abuse, both heroin and cocaine. PLAN: We will monitor the patient for any withdrawal symptoms. Continue ibuprofen 600 mg once a day as needed for pain with Pepcid 20 mg twice a day. Stephanie Garcia MD Psychiatric # [id number]
[2018-02-24 21:08] VITALS: O2SAT 61
[2018-02-24] MEDS: QUEtiapine 300 MG TABLET PO SCH (21:10)
[2018-02-25] MEDS: Naproxen 500 MG TAB PO SCH ×2 (08:51→21:06)
--- NOTE | 2018-02-25 12:27 | PCM.PYCHPN ---
Psychiatric Progress Note - Psychiatric Progress Note Patient seen today, length of contact: pt evaluated discussed with team chart reviewed Patient Chief Complaint: I am feeling better today Problems Identified/Issues Discussed: pt evaluated reported feeling better, affect less irritable, no reported side effects of medications, improved sleep pt denied current thoughts of self harm denied command hallucinations Medical Problems: pt has multiple psychiatric hospitalizations, hx of non compliance with treatment Medication Change: No Medical Record Reviewed: Yes Mental Status Examination - Cognitive Function Orientation: Person, Place, Situation Attention: WNL Concentration: WNL Association: WNL - Mood Mood: Depressed, Anxious - Affect Affect: Constricted, Depressed - Formal Thought Process Formal Thought Process: Hallucinations, Circumstantial - Suicidal Ideation Suicidal Ideation: No - Homicidal Ideation Homicidal Ideation: No Goal/Treatment Plan - Goal/Treatment Plan Need for Continued Stay: Severe depression anxiety, Discharge may exacerbated symptoms Progress Toward Problem(s) and Goals/Treatment Plan: seroquel 300mg qhs , for AH, depression and mood stabilization neurontin 200mg tid i trazodone 300mg qhs motivational, group and supportive therapy
[2018-02-25] MEDS: QUEtiapine 300 MG TABLET PO SCH (21:06)
[2018-02-26] MEDS: Naproxen 500 MG TAB PO SCH (09:06)
[2018-02-26 09:40] VITALS: BP 121/74; PULSE 72; RESP 19; TEMP 97.9
--- NOTE | 2018-02-26 10:02 | PCM.PYCHDC ---
Mental Status Examination - Mental Status Examination Orientation: Person, Place, Situation Memory: Intact Mood: Neutral Affect: Broad Speech: Appropriate Attention: WNL Concentration: WNL Association: WNL Fund of Knowledge: WNL Formal Thought Process: No Impairment Description of patient's judgement and insight: partial insight poor judgment Psychotic Thoughts and Behaviors: pt denied perceptual disturbances, non elicited Suicidal Ideation: No Current Homicidal Ideation?: No Discharge Summary - Discharge Note Reason for Hospitalization: pt is 47ys old female with previous diagnosis of bipolar disorder. opiate dependence and cocaine abuse , presented to ER having suicidal ideation pt recently discharged from [facility] (formerly [facility]) non compliant with medications or follow up, became increasingly depressed because of the holidays , relapsed on opiates and cocaine, started experiencing auditory hallucinations and suicidal ideation, came to ER seeking help On evaluation patient reported low energy, feeling hopeless and helpless non command auditory hallucinations and passive suicidal ideation Consultations:: List each consultation separately and include: 1. Reason for request. 2. Findings. 3. Follow-up Summary of Hospital Course include:: 1. Description of specific treatment plan utilized for patients during their course of treatmen. 2. Summarize the time- course for resolution of acute symptoms and/or regressed behaviors. 3. Describe issues identified and worked on during hospitalization. 4. Describe medication utilized. 5. Describe medical problems identified and treated. 6. Reassessment of suicide risk Summary of Hospital Course: pt on admission was started on clonidine protocol, , observed for symptoms and signs of opiate withdrawal pt was started on neurontin for anxiety, seroquel for mood stabilization motivational therapy provided in reference to opiate use pt was advised about risk of prolapse on discharge with possible overdose pt was compliant with treatment . no reported side effects on discharge mental status was stable pt denied any current suicidal or homicidal ideation denied perceptual disturbances follow up arranged by social welfare clerk at [facility] clinic - Diagnosis (1) Substance induced mood disorder Current Visit: Yes Status: Chronic - Final Diagnosis (DSM 5) Condition upon Discharge: FAIR DSM 5: substance induced mood disorder opiate depenednce cocaine use bipolar disorder Disposition: HOME/ ROUTINE Follow-up Treatment Plan: seroquel 300mg qhs , for AH, depression and mood stabilization neurontin 200mg tid i trazodone 300mg qhs motivational, group and supportive therapy Prescriptions/Medication Reconciliation: Gabapentin [Neurontin] 200 mg PO TID 30 Days #180 cap QUEtiapine [SEROquel] 300 mg PO HS 30 Days #30 tab traZODone [Desyrel] 300 mg PO HS 30 Days #90 tab - Antipsychotic Medications Pt discharged on 2 or more routine antipsychotic medications: No
== END 2018-02-26 10:50 | disposition home or self-care (01) | DRG 745 ==
LOC: H.ER 21:06 → H.ERHOLD 23:03 → H.PSYCH 02-22 00:24
PROVIDERS: ADMIT Psychiatry & Neurology Psychiatry; ATTEND Psychiatry & Neurology Psychiatry
PROC: HZ57ZZZ Individual Psychotherapy for Substance Abuse Treatment, Motivational Enhancement (ICD-10-PCS; principal; 2018-02-21)
PROC: GZHZZZZ Group Psychotherapy (ICD-10-PCS; 2018-02-21)
PROC: GZ56ZZZ Individual Psychotherapy, Supportive (ICD-10-PCS; 2018-02-21)
PROC: 3E02340 Introduction of Influenza Vaccine into Muscle, Percutaneous Approach (ICD-10-PCS; 2018-02-22)
DX: F19.94 Other psychoactive substance use, unspecified with psychoactive substance-induced mood disorder (principal); F11.23 Opioid dependence with withdrawal; F14.90 Cocaine use, unspecified, uncomplicated; F31.9 Bipolar disorder, unspecified; F41.9 Anxiety disorder, unspecified; G47.00 Insomnia, unspecified; M17.0 Bilateral primary osteoarthritis of knee; R45.851 Suicidal ideations; J45.909 Unspecified asthma, uncomplicated; Z88.0 Allergy status to penicillin; Z23 Encounter for immunization; F31.4 Bipolar disorder, current episode depressed, severe, without psychotic features

== ENCOUNTER 2018-06-25 20:45 | Inpatient (IN) | payer MEDICAID ==
[2018-06-25 20:45] VITALS: BMI 25.0
--- NOTE | 2018-06-25 22:18 | ED PDOC ---
HPI: Psych/Substance Abuse Time Seen by Provider: 06/25/18 21:32 Chief Complaint (Nursing): Psychiatric Evaluation Chief Complaint (Provider): psychiatric evaluation History/Exam Limitations: no limitations Onset/Duration Of Symptoms: Days Current Symptoms Are (Timing): Still Present Modifying Factor(s): Other (heroin this past week; most recently snorted heroin earlier today) Additional Complaint(s): Pt. is a 48 y/o Female with history of Depression and schizoaffective disorder who reports to ED complaining of feeling more depressed this past 1 week. She reports she doesn't see anyway "out of it" and has thought about ending her life but denies any plan or any recent attempts. Pt. reports she takes paxil, seroquel. She was also receiving suboxone but was unable to get it this past week so starting using heroin again this week, most recently today (snorted). Past Medical History Vital Signs: Last Vital Signs Temp 98.2 F 06/25/18 21:21 Pulse 93 H 06/25/18 21:21 Resp 16 06/25/18 21:21 BP 109/76 06/25/18 21:21 Pulse Ox 98 06/25/18 21:21 - Medical History PMH: Anemia, Anxiety, Asthma, Bipolar Disorder, Depression, Schizophrenia Denies: Arthritis, Crohn's Disease, Diabetes, Diverticulitis, Fractures, Gastritis, Gall Bladder Disease, Hepatitis, HIV, HTN, Hyperthyroidism, Hypothyroidism, Kidney Stones, Osteoporosis, Pancreatitis, Chronic Kidney Disease, Rheumatoid Arthritis, Seizures, Sexually Transmitted Disease - Surgical History Surgical History: Cholecystectomy - Family History Family History: States: Unknown Family Hx - Immunization History Hx Tetanus Toxoid Vaccination: No Hx Influenza Vaccination: Yes Hx Pneumococcal Vaccination: No - Home Medications Home Medications: Ambulatory Orders Medication Instructions Recorded Buprenorphine HCl/Naloxone HCl 8 mg SL BID 05/26/18 [Suboxone 8 mg-2 mg Sl Film] Gabapentin [Neurontin] 300 mg PO TID #45 cap 05/29/18 Home Med 1 unit PO BID ea 05/29/18 PARoxetine [Paxil] 20 mg PO DAILY #14 tab 05/29/18 QUEtiapine [Seroquel] 100 mg PO DAILY #14 tab 05/29/18 Quetiapine Fumarate [Seroquel] 200 mg PO HS #14 tab 05/29/18 Zolpidem [Ambien] 5 mg PO HS PRN #14 tab 05/29/18 traZODone [Desyrel] 100 mg PO HS #14 tab 05/29/18 - Allergies Allergies/Adverse Reactions: Allergies Allergy/AdvReac Type Severity Reaction Status Date / Time Penicillins Allergy unknown Verified 06/25/18 21:21 Review of Systems Constitutional: Negative for: Fever, Chills Cardiovascular: Negative for: Chest Pain Respiratory: Negative for: Shortness of Breath Neurological: Negative for: Weakness, Confusion, Altered Mental Status Psych: Positive for: Depression Physical Exam - Physical Exam Appears: Positive for: Well, Non-toxic Head Exam: Positive for: ATRAUMATIC Skin: Positive for: Normal Color, Warm, Dry Eye Exam: Positive for: Normal appearance Neck: Positive for: Normal Cardiovascular/Chest: Positive for: Regular Rate, Rhythm Respiratory: Positive for: Normal Breath Sounds Gastrointestinal/Abdominal: Positive for: Normal Exam Neurological/Psych: Positive for: Awake, Alert, Mood/Affect (somnolent but cooperative and answers all questions) - Laboratory Results Result Diagrams: 06/25/18 23:00 06/25/18 23:00 - ECG O2 Sat by Pulse Oximetry: 98 Medical Decision Making Medical Decision Making: cbc cmp etoh ua drug screen ekg cxr crisis consult IV access obtained, labs sent. Case d/w floor service worker spring Addison and he will evaluate pt. Case endorsed to LEIGH Garcia at 12 am, pending labs, reassessment, and crisis disposition. Disposition - Clinical Impression Clinical Impression: Heroin abuse, Schizoaffective disorder, Depression - Patient ED Disposition Is Patient to be Admitted: Transfer of Care (LEIGH Garcia) - Disposition Disposition: Transfer of Care (LEIGH Garcia) Disposition Time: 23:51 Condition: STABLE Forms: [employer]Eval (Kyrgyz)
[2018-06-25 23:24] LABS: BASO # 0.1 K/uL (0.0-0.2); BASO % 1.2 % (0.0-2.0); EOS # 0.3 K/uL (0.0-0.7); EOS % 4.5 % (0.0-4.0); HEMOGLOBIN 13.6 g/dL (12.0-16.0); LYMPH # 2.9 K/uL (1.0-4.3); MEAN CELL VOLUME 90.2 fl (81.0-99.0); MEAN CORPUSCULAR HEMOGLOBIN 29.8 pg (27.0-31.0); MEAN PLATELET VOLUME 9.1 fl (7.2-11.7); MONO # 0.7 K/uL (0.0-0.8); MONO % 10.5 % (0.0-10.0); NEUT % 42.8 % (50.0-75.0); NRBC % 0.2 % (0.0-0.0); RBC 4.57 Mil/uL (3.80-5.20); RED CELL DISTRIBUTION WIDTH 16.3 % (11.5-14.5); WHITE BLOOD COUNT 7.1 K/uL (4.8-10.8)
[2018-06-25 23:33] LABS: ALB/GLOB RATIO 1.2 (1.0-2.1); ALBUMIN 4.4 g/dL (3.5-5.0); ALT/SGPT 41 U/L (9-52); AST/SGOT 46 U/L (14-36); BLOOD UREA NITROGEN 16 mg/dl (7-17); CALCIUM 9.7 mg/dL (8.4-10.2); GFR NON-AFRICAN AMERICAN > 60
[2018-06-25 23:52] LABS: SQUAMOUS EPITHIAL 3 /hpf (0-5); URINE BACTERIA OCC (<OCC); URINE BILIRUBIN NEGATIVE (NEGATIVE); URINE BLOOD NEGATIVE (NEGATIVE); URINE CLARITY CLOUDY (Clear); URINE COLOR YELLOW (YELLOW); URINE GLUCOSE (UA) NEG (NEGATIVE); URINE LEUKOCYTE ESTERASE NEG Leu/uL (Negative); URINE PROTEIN 30 mg/dL (NEGATIVE)
[2018-06-25 23:58] LABS: BARBITURATES, UR NEGATIVE (NEGATIVE)
--- NOTE | 2018-06-25 23:58 | ED PDOC ---
- Laboratory Results Result Diagrams: 06/25/18 23:00 06/25/18 23:00 Lab Results: Total Bilirubin 0.5 mg/dl (0.2-1.3) 06/25/18 23:00 AST 46 U/L (14-36) H D 06/25/18 23:00 ALT 41 U/L (9-52) 06/25/18 23:00 Alkaline Phosphatase 138 U/L (38-126) H 06/25/18 23:00 Total Protein 8.0 G/DL (6.3-8.2) 06/25/18 23:00 Albumin 4.4 g/dL (3.5-5.0) 06/25/18 23:00 Globulin 3.6 gm/dL (2.2-3.9) 06/25/18 23:00 Albumin/Globulin Ratio 1.2 (1.0-2.1) 06/25/18 23:00 Urine Color Yellow (YELLOW) 06/25/18 23:36 Urine Clarity Cloudy (Clear) 06/25/18 23:36 Urine pH 6.0 (5.0-8.0) 06/25/18 23:36 Ur Specific [place] 1.025 (1.003-1.030) 06/25/18 23:36 Urine Protein 30 mg/dL (NEGATIVE) 06/25/18 23:36 Urine Glucose (UA) Neg mg/dL (NEGATIVE) 06/25/18 23:36 Urine Ketones Negative mg/dL (NEGATIVE) 06/25/18 23:36 Urine Blood Negative (NEGATIVE) 06/25/18 23:36 Urine Nitrate Negative (NEGATIVE) 06/25/18 23:36 Urine Bilirubin Negative (NEGATIVE) 06/25/18 23:36 Urine Urobilinogen 2.0 mg/dL (0.2-1.0) H 06/25/18 23:36 Ur Leukocyte Esterase Neg Mari[place]/uL (Negative) 06/25/18 23:36 Urine RBC (Auto) 2 /hpf (0-3) 06/25/18 23:36 Urine Microscopic WBC 1 /hpf (0-5) 06/25/18 23:36 Ur Squamous Epith Cells 3 /hpf (0-5) 06/25/18 23:36 Urine Bacteria Occ (<OCC) H 06/25/18 23:36 - ECG O2 Sat by Pulse Oximetry: 98 - Progress ED Course And Treament: SEEN BY CRISIS ADMITTED TO DR. WILSON DEPRESSION Disposition - Clinical Impression Clinical Impression: Heroin abuse, Schizoaffective disorder, Depression - POA Present On Arrival: None - Disposition Disposition: Admitted as In-Patient Disposition Time: 01:54 Condition: STABLE
[2018-06-26 00:08] LABS: BENZODIAZEPINES, UR POSITIVE (NEGATIVE); OPIATES, UR POSITIVE (NEGATIVE); PHENCYCLIDINE, UR NEGATIVE (NEGATIVE)
[2018-06-26 02:27] VITALS: O2SAT 97
[2018-06-26] MEDS ORDERED: Alum-Mag Hydrox-Simethicone Susp (30 mL) PO PRN (02:47)
[2018-06-26] MEDS ORDERED: DiphenhydrAMINE 50 mg/ml Inj IM PRN (02:47)
[2018-06-26] MEDS ORDERED: Magnesium Hydroxide Susp 30 ml UD PO PRN (02:47)
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
--- NOTE | 2018-06-26 09:36 | CARD ---
APPROVED REPORT Date of service: 06/26/2018 EKG Measurement Heart [id number] <Conclusion> Normal sinus rhythm Poor R wave progression in Precordial leads Abnormal ECG
[2018-06-26] MEDS: Multivitamin With Minerals Tab PO SCH (13:11)
--- NOTE | 2018-06-26 13:28 | PCM.PSYCH ---
Initial Psychiatric Evaluation - Initial Psychiatric Evaluation Type of Admission: Voluntary Legal Status: Capacity Chief Complaint (in patient's own words): I am very depressed History of Present Illness and Precipitating Events: pt is 48ys old female with previous diagnosis of bipolar disorder and opiate dependence presented to ER due to having suicidal ideation with plan to jump infront of the train, pt has not been compliant with medications or follow up, became increasingly depressed due to family loss ,relapsed on cocaine and opiates, started feeling helpless and worthless and experiencing suicidal ideation on the unit pt presenting with depressed mood and affect, low energy poor motivation, passive suicidal ideation without active plan denied homicidal ideation denied command hallucinations Current Medications: Active Medications Generic Name Dose Route Start Last Admin Trade Name Freq PRN Reason Stop Dose Admin Acetaminophen 650 mg 06/26/18 02:47 Tylenol 325mg Tab PO Q4 PRN pain level 4-7 Al Hydrox/Mg Hydrox/Simethicone 30 ml 06/26/18 02:47 Maalox Plus 30 Ml PO Q4 PRN Dyspepsia Clonidine HCl 0.1 mg 06/26/18 09:00 06/26/18 13:12 Catapres PO 06/29/18 09:01 0.1 mg Q8 ANISA Administration Diphenhydramine HCl 50 mg 06/26/18 02:47 Benadryl IM Q6 PRN Extrapyramidal S/S Unable PO Diphenhydramine HCl 50 mg 06/26/18 02:47 Benadryl PO Q6 PRN Extrapyramidal Symptoms Diphenhydramine HCl 50 mg 06/26/18 02:52 Benadryl PO HS PRN Sleep Haloperidol 5 mg 06/26/18 02:47 Haldol PO Q4 PRN Agitation Haloperidol Lactate 5 mg 06/26/18 02:47 Haldol IM Q4 PRN Agitation, Unable to Take PO Ibuprofen 400 mg 06/26/18 02:54 Motrin Tab PO 06/29/18 02:55 Q6 PRN Pain, severe (8-10) Loperamide HCl 2 mg 06/26/18 02:54 Imodium PO Q4 PRN After Loose Bowel Movement Lorazepam 2 mg 06/26/18 02:47 Ativan IM Q8H PRN Anxiety/Agitation,Unable PO Lorazepam 1 mg 06/26/18 02:47 Ativan PO Q8H PRN Anxiety/Agitation Magnesium Hydroxide 30 ml 06/26/18 02:47 Milk Of Magnesia PO HS PRN Constipation Multivitamins/Minerals 1 tab 06/26/18 09:00 06/26/18 13:11 Therapeutic-M Tab PO 1 tab DAILY ANISA Administration Quetiapine Fumarate 200 mg 06/26/18 22:00 Seroquel PO HS [facility] Past Psychiatric History - Past Psychiatric History Explanation of prior treatment: multiple hospitalizations, history of non compliance History of ETOH/Drug Use: cocaine cannabis and opiate use Pertinent Medical Hx (Current Medical&Sleep Prob, Allergies): Allergies Allergy/AdvReac Type Severity Reaction Status Date / Time Penicillins Allergy unknown Verified 06/25/18 21:21 Gabapentin [Neurontin] 300 mg PO TID #45 cap 05/29/18 PARoxetine [Paxil] 20 mg PO DAILY #14 tab 05/29/18 QUEtiapine [Seroquel] 100 mg PO DAILY #14 tab 05/29/18 Quetiapine Fumarate [Seroquel] 200 mg PO HS #14 tab 05/29/18 Zolpidem [Ambien] 5 mg PO HS PRN #14 tab 05/29/18 traZODone [Desyrel] 100 mg PO HS #14 tab 05/29/18 Mometasone Furoate [Nasonex] 1 spray IN DAILY 06/26/18 Naproxen [Naprosyn] 500 mg PO BID PRN 06/26/18 Prednisone 50 mg PO DAILY 06/26/18 Triamcinolone 0.1% [Triamcinolone 0.1% Cream] 1 appl TOP DAILY 06/26/18 Mental Status Examination - Personal Presentation Personal Presentation: Looks older than stated age Additional comments: unkempt - Affect Affect: Constricted, Depressed - Motor Activity Motor Activity: Psychomotor Retardation - Reliability in Providing Information Reliability in Providing Information: Fair - Speech Speech: Relevant - Mood Mood: Depressed, Anxious - Formal Thought Process Formal Thought Process: Circumstantial - Cognitive Functions Orientation: Person, Place Sensorium: Alert Attention/Concentration: Easily distracted Abstract Thinking: [place] Judgement: Imparied, as evidence by: Poor judgement, Imparied, as evidence by: Lack of insight into illness - Risk Risk: Suicidal, Withdrawal, Diminished functioning - Strength & Assets Inventory Strength & Assets Inventory: Life experience - Limitations Additional comments: poor compliance DSM 5 DX - DSM 5 DSM 5 Diagnosis: opiate dependence cocaine abuse bipolar I disorder - Recommended/Plan of Treatment Treatment Recommendations and Plan of Treatment: start clonidine protocol / monitor for symptoms and signs of opiate withdrawal start seroquel 200mg qhs for mood stabilization neurontin 100mg tid for anxiety CBT motivational and group therapy
--- NOTE | 2018-06-26 13:48 | RAD ---
Date of service: 06/25/2018 HISTORY: medical clearance COMPARISON: 02/21/2018 TECHNIQUE: Chest PA and lateral views FINDINGS: LUNGS: No active pulmonary disease. PLEURA: No significant pleural effusion identified. No pneumothorax apparent. CARDIOVASCULAR: No aortic atherosclerotic calcification present. Normal cardiac size. No pulmonary vascular congestion. OSSEOUS STRUCTURES: No significant abnormalities. VISUALIZED UPPER ABDOMEN: Normal. OTHER FINDINGS: None. IMPRESSION: No active disease.
[2018-06-27] MEDS: Multivitamin With Minerals Tab PO SCH (08:50)
[2018-06-27 10:48] VITALS: RESP 18
--- NOTE | 2018-06-27 14:40 | PCM.PYCHPN ---
Psychiatric Progress Note - Psychiatric Progress Note Patient seen today, length of contact: pt evaluated discused with team chart reviewed Patient Chief Complaint: I am not comfortable, I have bad withdrawals Problems Identified/Issues Discussed: pt evaluated with treatment team, presenting with depressed mood anxious and irritable affect, reported low energy, restlessness, poor sleep, discussed with pt ffects of opiate and cocaine withdrawals on current mental status , discussed increasing seroquel, trazodone and neurontin, motivational therapy provided, pt denied command hallucinations, denied active thoughts of self harm Medical Problems: multiple hospitalizations, history of non compliance DSM 5 Symptoms Update: bipolar disorder opiate abuse cocaine abuse Medication Change: Yes (increase seoquel. neurontin, trazodone) Medical Record Reviewed: Yes Mental Status Examination - Cognitive Function Orientation: Person, Place Attention: WNL Concentration: Poor Association: WNL Fund of Knowledge: Poor Decription of patient's judgement and insights: poor insight and judgment - Mood Mood: Depressed, Anxious - Affect Affect: Constricted, Depressed - Speech Speech: Soft - Formal Thought Process Formal Thought Process: Circumstantial Psychotic Thoughts and Behaviors: pt denied perceptual disturbances, non elicited - Suicidal Ideation Suicidal Ideation: No - Homicidal Ideation Homicidal Ideation: No Goal/Treatment Plan - Goal/Treatment Plan Need for Continued Stay: Severe depression anxiety, Discharge may exacerbated symptoms, Failed transitioning Progress Toward Problem(s) and Goals/Treatment Plan: discontinue clonidine monitor for symptoms and signs of opiate withdrawal increase seroquel 300mg qhs and 50mg tid for mood stabilization increase neurontin 300mg tid for anxiety CBT motivational and group therapy
[2018-06-28] MEDS: Multivitamin With Minerals Tab PO SCH (08:43)
[2018-06-28 09:22] VITALS: BP 116/76; PULSE 64; TEMP 98.9
--- NOTE | 2018-06-28 10:49 | PCM.PYCHDC ---
Mental Status Examination - Mental Status Examination Orientation: Person, Place, Situation Memory: Intact Mood: Neutral Affect: Constricted Speech: Appropriate Attention: WNL Concentration: WNL Association: WNL Fund of Knowledge: WNL Formal Thought Process: No Impairment Description of patient's judgement and insight: poor insight and judgment Psychotic Thoughts and Behaviors: pt denied perceptual disturbances, non elicited Suicidal Ideation: No Current Homicidal Ideation?: No Discharge Summary - Discharge Note Reason for Hospitalization: pt is 48ys old female with previous diagnosis of bipolar disorder and opiate dependence presented to ER due to having suicidal ideation with plan to jump infront of the train, pt has not been compliant with medications or follow up, became increasingly depressed due to family loss ,relapsed on cocaine and opiates, started feeling helpless and worthless and experiencing suicidal ideation on the unit pt presenting with depressed mood and affect, low energy poor motivation, passive suicidal ideation without active plan denied homicidal ideation denied command hallucinations Consultations:: List each consultation separately and include: 1. Reason for request. 2. Findings. 3. Follow-up Summary of Hospital Course include:: 1. Description of specific treatment plan utilized for patients during their course of treatmen. 2. Summarize the time- course for resolution of acute symptoms and/or regressed behaviors. 3. Describe issues identified and worked on during hospitalization. 4. Describe medication utilized. 5. Describe medical problems identified and treated. 6. Reassessment of suicide risk Summary of Hospital Course: pt on admission was placed on clonidine protocol and monitored for symptoms and signs of opiate withdrawal pt presented with depressed mood and irritable affect she was placed on seroquel and neurontin motivational therapy provided pt was advised about possible maintenance treatment to avoid relapse pt was also advised on discharge about risk of relapse and possible overdose on discharge pt denied suicidal or homicidal ideation, denied perceptual disturbances - Diagnosis (1) Depression Current Visit: Yes Status: Acute (2) Heroin abuse Current Visit: Yes Status: Acute - Final Diagnosis (DSM 5) Condition upon Discharge: STABLE DSM 5: bipolarI disorder opiate use continuous cocaine abuse Disposition: HOME/ ROUTINE Follow-up Treatment Plan: discontinue clonidine monitor for symptoms and signs of opiate withdrawal increase seroquel 300mg qhs and 50mg tid for mood stabilization increase neurontin 300mg tid for anxiety CBT motivational and group therapy Prescriptions/Medication Reconciliation: Gabapentin [Neurontin] 300 mg PO TID 30 Days #90 cap QUEtiapine [SEROquel] 300 mg PO HS 30 Days #30 tab QUEtiapine [SEROquel] 50 mg PO TID 30 Days #90 tab traZODone [Desyrel] 200 mg PO HS 30 Days #60 tab Zolpidem [Ambien] 5 mg PO HS #30 tab - Antipsychotic Medications Pt discharged on 2 or more routine antipsychotic medications: No
--- NOTE | 2018-06-29 08:08 | CON ---
DATE: 06/27/2018 HISTORY OF PRESENT ILLNESS: The patient was admitted to the [facility]. Medical consultation was called for medical followup while the patient is in [facility]. The patient with known history of both heroin and cocaine abuse. The patient also had history of osteoarthritis, status post injections to both knees. The patient denied to have any pain at this point. The patient denied to have any symptoms suggestive of heroin withdrawal. REVIEW OF SYSTEMS: Other review of systems is negative. ALLERGIES: POSITIVE FOR PENICILLIN. PAST MEDICAL HISTORY: Osteoarthritis. SOCIAL HISTORY: Smoker and substance abuse. Denied EtOH. FAMILY HISTORY: Noncontributory. PHYSICAL EXAMINATION: GENERAL: The patient was in bed, not in any cardiopulmonary distress. VITAL SIGNS: Blood pressure 123/83, temperature 99, respiratory rate 18, and pulse 58. HEENT: Pupils equal, reactive to light. Normal-appearing mucosa of the conjunctivae, oropharynx, and nasal membrane mucosa. NECK: Supple. No JVD. No carotid bruit. No lymph node. No thyromegaly. CHEST AND LUNGS: Bilateral symmetrical expansion. Good air exchange. No rales. No rhonchi. CARDIOVASCULAR SYSTEM: PMI not localized. S1, S2. No additional sounds. ABDOMEN: Normoactive bowel sounds. No tenderness. No organomegaly. No masses. EXTREMITIES: No cyanosis, no clubbing, no edema. CENTRAL NERVOUS SYSTEM: Alert, awake, oriented x2. No neurological deficits could be appreciated. ASSESSMENT: Substance abuse with no current withdrawal symptoms, smoker, osteoarthritis. PLAN: Continue current medications and we will give the patient naproxen and ibuprofen as needed for pain. We will add Pepcid 20 mg daily. Stephanie Garcia MD
== END 2018-06-28 10:49 | disposition home or self-care (01) | DRG 430 ==
LOC: H.ER 20:45 → H.ERHOLD 06-26 01:49 → H.PSYCH 06-26 02:46
PROVIDERS: ADMIT Psychiatry & Neurology Psychiatry; ATTEND Psychiatry & Neurology Psychiatry
PROC: HZ52ZZZ Individual Psychotherapy for Substance Abuse Treatment, Cognitive-Behavioral (ICD-10-PCS; principal; 2018-06-26)
PROC: GZHZZZZ Group Psychotherapy (ICD-10-PCS; 2018-06-26)
PROC: HZ57ZZZ Individual Psychotherapy for Substance Abuse Treatment, Motivational Enhancement (ICD-10-PCS; 2018-06-26)
DX: F31.30 Bipolar disorder, current episode depressed, mild or moderate severity, unspecified (principal); F14.10 Cocaine abuse, uncomplicated; F11.90 Opioid use, unspecified, uncomplicated; Z88.0 Allergy status to penicillin; R45.851 Suicidal ideations; Z91.14 Patient's other noncompliance with medication regimen; Z91.19 Patient's noncompliance with other medical treatment and regimen; F17.200 Nicotine dependence, unspecified, uncomplicated; M19.90 Unspecified osteoarthritis, unspecified site; I10 Essential (primary) hypertension; J45.909 Unspecified asthma, uncomplicated

== ENCOUNTER 2018-07-14 23:45 | Emergency (ER) | payer MEDICAID ==
[2018-07-14 23:46] VITALS: BMI 25.0
[2018-07-15] MEDS ORDERED: Albuterol-Ipratrop 3 mg / 0.5 (3 ml) UD INH STA ×2 (00:14→00:15)
--- NOTE | 2018-07-15 00:27 | ED PDOC ---
HPI: Psych/Substance Abuse Time Seen by Provider: 07/15/18 00:03 Chief Complaint (Nursing): Psychiatric Evaluation Chief Complaint (Provider): Psychiatric Evaluation History Per: Patient History/Exam Limitations: no limitations Onset/Duration Of Symptoms: Days Additional Complaint(s): Patient is a 48 y/o female with an extensive PMHx including depression and bipolar disorder who presents to the ED for evaluation of auditory hallucinations and suicidal ideation, with no plan, for the past few days. Patient denies homicidal ideation and any further medical complaints. Of note, patient is known well to ED. PCP: Dr. Abigail Thornton Past Medical History Reviewed: Historical Data, Nursing Documentation, Vital Signs Vital Signs: Last Vital Signs Temp 98.9 F 07/15/18 00:00 Pulse 82 07/15/18 00:00 Resp 18 07/15/18 00:00 BP 114/74 07/15/18 00:00 Pulse Ox 97 07/15/18 00:00 Primary Care Provider: Abigail Thornton - Medical History PMH: Anemia, Anxiety, Asthma, Bipolar Disorder, Depression, Schizophrenia Denies: Arthritis, Crohn's Disease, Diabetes, Diverticulitis, Fractures, Gastritis, Gall Bladder Disease, Hepatitis, HIV, HTN, Hyperthyroidism, Hypothyroidism, Kidney Stones, Osteoporosis, Pancreatitis, Chronic Kidney Disease, Rheumatoid Arthritis, Seizures, Sexually Transmitted Disease - Surgical History Surgical History: Cholecystectomy - Family History Family History: States: Unknown Family Hx - Immunization History Hx Tetanus Toxoid Vaccination: No Hx Influenza Vaccination: Yes Hx Pneumococcal Vaccination: No - Home Medications Home Medications: Ambulatory Orders Medication Instructions Recorded Mometasone Furoate [Nasonex] 1 spray IN DAILY 06/26/18 Naproxen [Naprosyn] 500 mg PO BID PRN 06/26/18 Prednisone 50 mg PO DAILY 06/26/18 Triamcinolone 0.1% [Triamcinolone 1 appl TOP DAILY 06/26/18 0.1% Cream] Gabapentin [Neurontin] 300 mg PO TID 30 Days #90 cap 06/28/18 QUEtiapine [SEROquel] 50 mg PO TID 30 Days #90 tab 06/28/18 QUEtiapine [SEROquel] 300 mg PO HS 30 Days #30 tab 06/28/18 Zolpidem [Ambien] 5 mg PO HS #30 tab 06/28/18 traZODone [Desyrel] 200 mg PO HS 30 Days #60 tab 06/28/18 Albuterol 0.083% [Albuterol 0.083% 3 ml IH Q6H PRN #30 neb 07/15/18 Inhal Katia (2.5 mg/3 ml) UD] Albuterol HFA [Ventolin HFA 90 2 puff IH [id number] PRN #1 bottle 07/15/18 mcg/actuation (8 g)] Prednisone 50 mg PO DAILY #4 tab 07/15/18 - Allergies Allergies/Adverse Reactions: Allergies Allergy/AdvReac Type Severity Reaction Status Date / Time Penicillins Allergy unknown Verified 07/09/18 23:47 Review of Systems ROS Statement: Except As Marked, All Systems Reviewed And Found Negative Psych: Positive for: Depression, Suicidal ideation (with no plan; no homicidal ideation), Other (auditory hallucinations) Physical Exam - Reviewed Nursing Documentation Reviewed: Yes Vital Signs Reviewed: Yes - Physical Exam Appears: Positive for: Non-toxic, No Acute Distress Head Exam: Positive for: ATRAUMATIC, NORMAL INSPECTION, NORMOCEPHALIC Skin: Positive for: Normal Color, Warm, DRY Eye Exam: Positive for: EOMI, Normal appearance, PERRL Neck: Positive for: Normal, Painless ROM, Supple Cardiovascular/Chest: Positive for: Regular Rate, Rhythm. Negative for: Murmur Respiratory: Positive for: Wheezing Gastrointestinal/Abdominal: Positive for: Normal Exam, Soft. Negative for: Tenderness Back: Positive for: Normal Inspection. Negative for: L CVA Tenderness, R CVA Tenderness Extremity: Positive for: Normal ROM. Negative for: Pedal Edema, Deformity Neurological/Psych: Positive for: Alert, Oriented (x3) - ECG O2 Sat by Pulse Oximetry: 97 (RA) Pulse Ox Interpretation: Normal Medical Decision Making Medical Decision Making: Time: 6 Impression: Psychiatric Evaluation Plan: Crisis Evaluation Duoneb 3 ml INH (x2) predniSONE 60 mg PO 1:1 Observation Cont Time: 5 Crisis team will evaluate patient at 06:00. Patients asthma symptoms have resolved. Time: 0700 Patient endorsed from provider to Janina Handley MD. Patient initially evaluated for auditory hallucinations and asthma exacerbation. Wheezing resolved with Duoneb and predniSONE. Currently, pending final disposition as per recommendation by crisis team. Scribe Attestation: Documented by Jerson Lisa, acting as a scribe Shawn Soria MD Provider Scribe Attestation: All medical record entries made by the Scribe were at my direction and personally dictated by me. I have reviewed the chart and agree that the record accurately reflects my personal performance of the history, physical exam, medical decision making, and the department course for this patient. I have also personally directed, reviewed, and agree with the discharge instructions and disposition. Disposition - Clinical Impression Clinical Impression: Schizophrenia, Asthma exacerbation - Patient ED Disposition Is Patient to be Admitted: Transfer of Care Discussed With DrKacie: Janina Handley - Disposition Disposition: Transfer of Care Disposition Time: 07:00 Condition: STABLE Additional Instructions: FOLLOW-UP WITH PMD WITHIN 2 DAYS FOR REEVALUATION. Prescriptions: Albuterol HFA [Ventolin HFA 90 mcg/actuation (8 g)] 2 puff IH [id number] PRN #1 bottle PRN Reason: Shortness Of Breath Albuterol 0.083% [Albuterol 0.083% Inhal Katia (2.5 mg/3 ml) UD] 3 ml IH Q6H PRN #30 neb PRN Reason: Shortness Of Breath Prednisone 50 mg PO DAILY #4 tab Instructions: Schizophrenia, Asthma in Adults Forms: [employer] ([place]ian)
[2018-07-15] MEDS ORDERED: Albuterol-Ipratrop 3 mg / 0.5 (3 ml) UD ONE (00:28)
--- NOTE | 2018-07-15 07:34 | ED PDOC ---
- ECG O2 Sat by Pulse Oximetry: 97 (RA) Medical Decision Making Medical Decision Making: Time: 0700 --Patient is endorsed to provider pending crisis re-evaluation and final disposition. Time: 07 --Re-eval by bunker worker completed. Patient is psychiatrically cleared as per Dr. Chadwick. Upon provider reevaluation, patient is medically stable and requires no further treatment in the ED at this time. Findings and plan were discussed with patient who verbalizes understanding. Patient will be discharged home. Counseling was provided and all questions were answered regarding diagnosis. There is agreement to discharge plan. Return precautions discussed. Clinical Impression: asthma exacerbation; schizophrenia Scribe Attestation: Documented by Maribel Ferris, acting as a scribe for Janina Handley MD. Provider Scribe Attestation: All medical record entries made by the Scribe were at my direction and personally dictated by me. I have reviewed the chart and agree that the record accurately reflects my personal performance of the history, physical exam, medical decision making, and the department course for this patient. I have also personally directed, reviewed, and agree with the discharge instructions and disposition. Disposition - Clinical Impression Clinical Impression: Schizophrenia, Asthma exacerbation - POA Present On Arrival: None - Disposition Disposition: Routine/Home Disposition Time: 07:42 Condition: STABLE Additional Instructions: FOLLOW-UP WITH PMD WITHIN 2 DAYS FOR REEVALUATION. Prescriptions: Albuterol HFA [Ventolin HFA 90 mcg/actuation (8 g)] 2 puff IH [id number] PRN #1 bottle PRN Reason: Shortness Of Breath Albuterol 0.083% [Albuterol 0.083% Inhal Katia (2.5 mg/3 ml) UD] 3 ml IH Q6H PRN #30 neb PRN Reason: Shortness Of Breath Prednisone 50 mg PO DAILY #4 tab Instructions: Schizophrenia, Asthma in Adults Forms: [facility] (British)
[2018-07-15 08:38] VITALS: RESP 20
[2018-07-15 09:25] VITALS: BP 120/70; PULSE 70; TEMP 98
[2018-07-17 15:27] VITALS: O2SAT 97
== END 2018-07-15 09:25 | disposition home or self-care (01) ==
LOC: H.ER 23:45
DX: J45.901 Unspecified asthma with (acute) exacerbation (principal); F20.9 Schizophrenia, unspecified